=== PATIENT | female | born 1945 | race Hispanic/Latino ===

== ENCOUNTER → 2019-03-13 | Outpatient (CLI) | payer MEDICARE ==
[~2019-03-13] MED LIST: HYDROXYCHLOROQ200 MG PO; IOPAMIDOL 370 MG/ML 200 ML INFUS..BTL INJ ONE; LEVOTHYROXINE75 MCG PO; METOPROLOL SUCC25 MG PO; PIOGLITAZONE HC45 MG PO; REGADENOSON 0.4 MG/5 ML SYR IV ONE; SODIUM CHLORIDE 0.9% 100 ML 100 ML ONE; SODIUM CHLORIDE 0.9% 250ML 500 ML ONE; SODIUM CHLORIDE 0.9% 50ML 0 ML ONE; Z.0.AMLODIPINE BESYL PO; Z.0.BENTYL20 MG PO; Z.0.CRESTOR20 MG PO; Z.0.GLIMEPIRIDE4 MG PO; Z.0.LISINOPRIL40 MG PO; Z.0.METFORMIN HCL100 PO; Z.0.PLAVIX75 MG PO; Z.1.HYDROCHLOROTH12. PO
[2019-03-13 08:17] LABS: CREATININE, SERUM 1.3 mg/dL (0.57-1.11)
--- NOTE | 2019-03-13 14:11 | Diagnostic Imaging Report ---
History: Carotid stenosis Comparison studies:None Technique: Axial images were obtained from the thoracic inlet. Coronal and sagittal images reconstructed from the axial data. Additional multiplanar MIP and volume rendered 3-D images were provided. Automated stenoses calculations were also performed on a stand alone workstation by the radiologist (these images are available on the PACS. Intravenous contrast: 100 cc of Omnipaque 300. If present, stenosis is calculated utilizing the NASCET method which calculates the degree of stenosis with reference to the normal lumen of the carotid artery distal to the stenosis. Findings: Aortic arch and great vessels: Moderate scattered calcified plaque throughout the arch. Mild stenosis due to calcified plaque at the origins of the subclavian arteries. Calcified plaque at the origin of the right brachiocephalic and left common carotid arteries do not result in significant stenosis. Right carotid artery: Calcified plaque at the origin does not result in significant stenosis. Calcified and soft plaque in any distal right common carotid artery just proximal to the bifurcation results in less than 20% stenosis. Right carotid bulb: Moderate calcified and mild soft plaque at the right carotid bulb with approximately 15% stenosis Right internal carotid artery: Patent, no stenosis. Left common carotid artery: Facet arthrosis on the left at C3-C4 and on the right at C4-C5. Calcified plaque at the origin does not result significant stenosis. Soft plaque versus mild intimal thickening in the distal left common carotid artery results in less than 20% stenosis. Left carotid bulb: Changes of prior endarterectomy. No (0%) stenosis. Internal carotid arteries: Patent, no abnormalities. Vertebral arteries: Patent, no abnormalities. Included mus[place]og[place] of [place]: Patent internal carotid arteries with dense calcified plaque in the bilateral cavernous and paraophthalmic ICA segments which result in only mild stenosis. Patent, no proximal branch occlusion or stenosis in the bilateral middle cerebral arteries and anterior cerebral arteries. Patent intradural vertebral arteries with mild calcified plaque in the proximal V4 segments which result in only mild stenosis. Patent, no abnormalities in the basilar artery. No proximal branch occlusion in the included posterior cerebral arteries.. Incidental findings: Sternotomy wires for previous cardiothoracic surgery. Hyperdensity along the superolateral margin of the left globe possibly glaucoma shunt reservoir which can be correlated with ophthalmologic history. IMPRESSION: 1. Atherosclerotic plaques as described. 2. Mild stenosis (< 20%) in the distal common carotid arteries. 3. Approximately 15% stenosis at the right carotid bulb. 4. No (0%) stenosis at the left carotid bulb status post left carotid endarterectomy. 5. Mild stenosis in the carotid siphons and intradural vertebral arteries. Signed by: Dr. Samuel Jain M.D. on 03/13/2019 2:08 PM
== END ==
LOC: CT 07:12
PROVIDERS: ATTEND Internal Medicine
DX: I65.22 Occlusion and stenosis of left carotid artery (principal); R07.9 Chest pain, unspecified
CPT/HCPCS: 36415; 70498; 82565; 84520; 96360; J7050; Q9967

== ENCOUNTER → 2019-03-27 | Outpatient (CLI) | payer MEDICARE ==
[~2019-03-27] MED LIST changes: +COREG12.5 MG PO; +FUROSEMIDE40 MG PO; -IOPAMIDOL 370 MG/ML 200 ML INFUS..BTL INJ ONE; +KEFLEX500 MG PO; -SODIUM CHLORIDE 0.9% 100 ML 100 ML ONE; -SODIUM CHLORIDE 0.9% 250ML 500 ML ONE; -SODIUM CHLORIDE 0.9% 50ML 0 ML ONE
--- NOTE | 2019-04-07 12:51 | Myoview Stress Test ---
DATE OF STUDY: 03/27/2019 09:27:00 Stress Test - Treadmill ONLY PROCEDURE TITLE: Rest/stress single isotope SPECT imaging with pharmacologic stress and gated SPECT imaging. DESCRIPTION OF PROCEDURE: Pharmacologic stress testing was performed with regadenoson per protocol. The heart rate was 66 beats per minute at rest and increased to 86 beats per minute during the regadenoson infusion. The rest blood pressure was 149/57 and decreased to 136/56 mmHg, which is a normal response. The resting electrocardiogram demonstrated normal sinus rhythm. There were no ST-segment changes suggestive of myocardial ischemia. Myocardial perfusion imaging was performed at rest following the injection of 11 mCi of tetrofosmin. At peak pharmacologic effect, the patient was injected 33 mCi of tetrofosmin. Gated post-stress tomographic imaging was performed. FINDINGS: The overall quality of the study is fair. Left ventricular cavity is noted to be normal size on the rest and stress studies. SPECT images demonstrate homogeneous tracer distribution throughout the myocardium. Gated SPECT imaging reveals normal myocardial thickening and wall motion. Left ventricular ejection fraction is calculated to be 70%. IMPRESSION: Myocardial perfusion imaging is normal. Overall left ventricular systolic function was normal without regional wall motion abnormalities. Isela Oneill MD ABS/MODL /[id number]
== END ==
LOC: NM 09:08
PROVIDERS: ATTEND Internal Medicine
DX: I65.22 Occlusion and stenosis of left carotid artery (principal); R07.9 Chest pain, unspecified
CPT/HCPCS: 78452; 93017; A9502; J2785

== ENCOUNTER 2019-04-09 12:29 | Observation (INO) | payer MEDICARE ==
[~2019-04-09] VITALS: Ht 152.4 cm; Wt 87.5 kg
[~2019-04-09 12:29] MED LIST changes: -COREG12.5 MG PO; -FUROSEMIDE40 MG PO; -KEFLEX500 MG PO; -REGADENOSON 0.4 MG/5 ML SYR IV ONE
--- OUTSIDE RECORDS SUMMARY | 2019-04-09 12:34 | XMS REPORT | Clinical Summary ---
Author Author [facility] Organization [facility] Address Unknown Phone Unavailable Care Team Providers Care Licensing Director Name Role Phone Samuel Allen MD PCP Allergies Comments Active Allergy Reactions Severity Noted Date Aspirin GI 10/09/2016 Intolerance Codeine GI 10/09/2016 Intolerance Morphine GI 10/09/2016 Intolerance Medications End Date Status Medication Sig Dispensed Refills Start Date Active dicyclomine (BENTYL) 20 Take 20 mg by 0 mg tablet mouth 4 (four) times a day. Active metFORMIN (GLUCOPHAGE) Take 1,000 mg 0 1,000 mg tablet by mouth daily. Active UNABLE TO FIND hyoroxychloro 0 quine Active pioglitazone (ACTOS) 15 Take 30 mg by 0 MG tablet mouth daily. Active levothyroxine (SYNTHROID, Take 75 mcg 0 LEVOXYL) 75 mcg tablet by mouth every morning. Active hydroCHLOROthiazide Take 12.5 mg 0 (MICROZIDE) 12.5 mg by mouth capsule daily. Active amLODIPine (NORVASC) 10 Take 10 mg by 0 mg tablet mouth daily. Active albuterol (PROAIR HFA) 90 Inhale 2 0 mcg/actuation inhaler puffs every 6 (six) hours as needed for wheezing. Active Problems Problem Noted Date Postoperative anemia due to acute blood loss 10/18/2016 Thrombocytopenia 10/18/2016 Acute renal failure 10/17/2016 Delirium 10/17/2016 Aortic valve stenosis 10/15/2016 S/P AVR 10/15/2016 Stenosis of left carotid artery 10/15/2016 Type 2 diabetes mellitus without complication 10/15/2016 Post-op pain 10/15/2016 S/P carotid endarterectomy 10/15/2016 Social History Date Tobacco Use Types Packs/Day Years Used Current Some Day Smoker Comments: intermittent Alcohol Use Drinks/Week oz/Week Comments No Sex Assigned at Date Recorded Not on file Industry Job Start Date Occupation Not on file Not on file Not on file Travel End Travel History Travel Start No recent travel history available. Last Filed Vital Signs Not on file Plan of Treatment Health Maintenance Due Date Last Done Comments DIABETIC RETINAL EYE EXAM 1944 DIABETIC FOOT EXAM 1954 URINE MICROALBUMIN 1954 BREAST CANCER SCREENING 1994 COLONOSCOPY SCREENING 1994 SHINGLES VACCINES (#1) 1994 65+ PNEUMOCOCCAL VACCINE 2009 (1 of 2 - PCV13) INFLUENZA VACCINE 04/30/2019 Implants Device Identifier Shelf Expiration Date Model / Serial / Lot Implanted Type Area Manufactur er 6500F / / Lead Pace Luciano Mycrdl Unipol Tmpry Cardiovasc N/A: N/A [employer] Streamline - [id number] [facility] - Implanted: 10/15/2016 (Quantity not Implants CARDIAC on file) SRGRY 6500F / / Lead Pace Luciano Mycrdl Unipol Tmpry Cardiovasc N/A: N/A [employer] Streamline - [id number] [facility] - Implanted: 10/15/2016 (Quantity not Implants CARDIAC on file) SRGRY 04/24/2018 TFGT 19A / [id number] / [id number] Valve Aortic Hemo Peric Tiss Cardiovasc N/A: N/A ST LO W/[place] Tech Cuff 19mm Trifecta - ulpr STRUCTURAL [id number] Implants HEART Implanted: 10/15/2016 (Quantity not on file) 6500F / / Lead Pace Luciano Mycrdl Unipol Tmpry Cardiovasc N/A: N/A [employer] Streamline - [id number] [facility] - Implanted: 10/15/2016 (Quantity not Implants CARDIAC on file) SRGRY S 1100 [id number] / / Chamber Sgl Edy Dry Suct 1wy Vlv Surgical N/A: N/A TELEFLEX Adlt Pedi - [id number] Implants; MEDICAL Implanted: 10/15/2016 (Quantity not Expanders; on file) Extenders; Surgical Wires 02/05/2021 [id number] / / [id number] Patch Vasclr Perph 0.8x8cm Vascular N/A: N/A JOSE Vascu-Guard - [id number] Graft [employer] Implanted: 10/15/2016 (Quantity not on file) Results Not on fileafter 04/08/2018 Insurance Type Payer Benefit Subscriber ID Effective Phone Address Plan / Dates Group HMO CIGNA HEALTHSPRING CIGNA xxxxxxxxxxx 2016-P HEALTHSPRI resent NG HMO MCR ADV HMO AETNA AETNA xxxxxxxxxx 2004-P HMO,POS,EP resent O, MC/EC Advance Directives Patient has advance care planning documents on file. For more information, [place] contact: Feliciano Bonilla [address] [place] [address]
--- OUTSIDE RECORDS SUMMARY | 2019-04-09 12:35 | XMS REPORT | Summary of Care ---
Author Author [facility] [place] Organization [facility] [place] Address Unknown Phone Unavailable Encounter HQ Encntr_alikatie(FIN) [id number] Date(s): 12/22/18 - 12/22/18 [facility] [place] [address] [place] [phone] Discharge Disposition: Home or Self Care Attending Physician: Lio De La O MD Referring Physician: Lio De La O MD Vital Signs No data available for this section Problem List No data available for this section Allergies, Adverse Reactions, Alerts No data available for this section Medications No data available for this section Results No data available for this section Immunizations No data available for this section Procedures No data available for this section Social History No data available for this section Assessment and Plan No data available for this section
--- OUTSIDE RECORDS SUMMARY | 2019-04-09 12:35 | XMS REPORT | Continuity of Care Document ---
Author Author [facility] Organization [facility] Address Unknown Phone Unavailable Care Team Providers Care Unix Analyst Name Role Phone [employer] Unavailable Unavailable Problems Problem Status Onset Date Classification Date Reported Comments Source Z11.1 - ENCOUNTER FOR SCREENING FOR RE Active 07/18/2016 [facility] [place] 719.4 - PAIN IN JOINT Active 02/18/2013 [facility] [place] Fibromyalgia Active Problem 04/08/2019 Lester De La O Rheumatoid arthritis without rheumatoid factor, multiple sites Active Problem 04/08/2019 Lester De La O Knee osteoarthritis Active Problem 04/08/2019 Lester De La O Other group home drug therapy Active Diagnosis 04/08/2019 Lester De La O Osteoporosis screening Active Diagnosis 06/25/2017 Lester De La O Hip pain, left Active Diagnosis 12/18/2018 Lester De La O Medications Medication Details Route Status Patient Instructions Ordering Provider Order Date Source Hydroxychloroquine Sulfate take one tablet by mouth twice daily with food or milk NA Active 200MG bid Monica 12/02/2018 Lester De La O Hydroxychloroquine Sulfate take one tablet by mouth twice daily with food or milk NA Active 200MG Monica 11/10/2018 Lester De La O Folic Acid 1 tablet Orally Active 1 MG Orally Once a day Monica 04/23/2018 Lester De La O Methotrexate 6 tabs altogether Orally Active 2.5mg Orally Once a week 04/23/2018 Lester De La O PredniSONE 1 tab Orally Active 5 MG Orally Once a day Monica 04/23/2018 Lester De La O PredniSONE 1 tab Orally Active 5 MG Orally Once a day Monica 04/23/2018 Lester De La O Methotrexate 6 tabs altogether Orally Active 2.5mg Orally Once a week 04/23/2018 Lester De La O Leflunomide 1 tablet Orally Active 20 MG Orally Once a day Fakoya 06/07/2017 Lester De La O Synvisc One in clinic Intra-articular Active 48 MG/6ML Intra-articular Fakoya 06/07/2017 Lester De La O Medrol 1 tablet with food or milk in the morning Orally Active 4 MG Orally once a day 06/07/2017 Lesterjanell De La O Hydroxychloroquine Sulfate 1 tablet with food or milk Orally Active 200 MG Orally twice a day 05/17/2017 Lester Jairon Metformin HCl 1 tablet with meals Orally Active 1000 MG Orally Twice a day [facility] Lester De La O Metoprolol-HCTZ ER 1 tablet Orally Active 25-12.5 MG Orally Once a day [facility] Lester De La O Clopidogrel Bisulfate 1 tablet Orally Active 75 MG Orally Once a day Lester De La O Dicyclomine HCl 1 tablet Orally Active 20 MG Orally Four times a day [facility] Lester De La O Timolol 1 drop into affected eye Ophthalmic Active 0.5 % Ophthalmic Once a day Lester De La O Amlodipine Besylate 1 tablet Orally Active 10 MG Orally Once a day Lester De La O Gabapentin 1 capsule Orally Active 300 MG Orally Three times a day [facility] Lester De La O FreeStyle Lite as directed NA Active [facility] Lester De La O Levothyroxine Sodium 1 tablet Orally Active 75 MCG Orally Once a day Lester De La O Lisinopril 1 tablet Orally Active 40 MG Orally Once a day [facility] Lester De La O Hydroxychloroquine Sulfate TAKE ONE TABLET BY MOUTH TWICE DAILY WITH FOOD OR MILK NA Active 200MG Lester De La O Pioglitazone HCl 1 tablet Orally Active 30 MG Orally Once a day Lester De La O Hydrochlorothiazide 1 capsule Orally Active 12.5 MG Orally Once a day Lester De La O Rifampin 1 capsule Orally Active 600 MG Orally Once a day Lester De La O Medrol 1 tablet with food or milk in the morning Orally Active 4 MG Orally once a day Lester De La O Metformin HCl 1 tablet with meals Orally Active 1000 MG Orally Twice a day Lester De La O Gabapentin 1 capsule Orally Active 300 MG Orally Three times a day Lester De La O Clopidogrel Bisulfate 1 tablet Orally Active 75 MG Orally Once a day Lester De La O Timolol 1 drop into affected eye Ophthalmic Active 0.5 % Ophthalmic Once a day Lester De La O Dicyclomine HCl 1 tablet Orally Active 20 MG Orally Four times a day Lester De La O Lisinopril 1 tablet Orally Active 40 MG Orally Once a day Monica Lester De La O FreeStyle Lite as directed NA Active Monica Lester De La O Levothyroxine Sodium 1 tablet Orally Active 75 MCG Orally Once a day Monica Lester De La O Hydrochlorothiazide 1 capsule Orally Active 12.5 MG Orally Once a day Monica Lester De La O Metoprolol-HCTZ ER 1 tablet Orally Active 25-12.5 MG Orally Once a day Monica Lester De La O Tylenol Arthritis Pain 2 tablets as needed Orally Active 650 MG Orally as needed Monica Lester De La O Allergies, Adverse Reactions, Alerts Substance Category Reaction Severity Reaction type Status Date Reported Comments Source Morphine Sulfate Adverse Reaction Info Not Available Adverse Reaction Active 03/10/2019 Lester De La O Codeine Sulfate Adverse Reaction Info Not Available Adverse Reaction Active 03/10/2019 Lester De La O Aspirin Adverse Reaction Info Not Available Adverse Reaction Active 03/10/2019 Lester De La O Immunizations No Data Provided for This Section Results No Data Provided for This Section Pathology Reports No Data Provided for This Section Diagnostic Reports Report Value Date Source Hip 2/3 views uni w pelvis DX EXAM: Hip 2/3 views uni w pelvis DX HISTORY: - M25.552 Pain in left hip COMPARISON: None AP pelvis and AP and lateral view of the left hip. FINDINGS: No fracture is seen. Alignment is normal. No evidence of osteophyte formation. No focal osseous lesion. Vascular clips in the left groin. IMPRESSION: No acute abnormality. 12/22/2018 NEGRO Garay Chest 2 views DX EXAM: Chest 2 views DX HISTORY: - J44.9 Chronic obstructive pulmonary disease, unspecified COMPARISON: 07/18/2016 Cardiomegaly and median sternotomy. Valvular repair. Clear lungs. No effusion or pneumothorax. No acute osseous abnormality. Kyphoplasty at the thoracolumbar junction is again noted. IMPRESSION: No acute abnormality. Stable cardiomegaly. 01/21/2018 NEGRO Garay Chest 2 views DX EXAM: 2 view(s) of the chest. CLINICAL: Z11.1 Encounter for screening for respiratory tuberculosis. Additional: ; . COMPARISON: Chest x-ray: 04/10/2016. FINDINGS: Support apparatus: None. Cardiac silhouette: Unremarkable. Kirsten: Unremarkable. Lobar consolidation: Negative. Pleural effusion: Negative. Pneumothorax: Negative. Other: Negative. Bones: Lower thoracic spine vertebroplasty changes. Other: None. IMPRESSION: 1. No acute cardiopulmonary process. 07/18/2016 NEGRO Warrena Chest 2 views DX Exam: Two-view chest x-ray Reason for Exam: R01.1 Cardiac murmur, unspecified Comparison Exam: 02/16/2014 Discussion: Cardiomediastinal silhouette is within normal limits. Both hemidiaphragms well visualized. No pulmonary edema or pleural effusions. No focal lung consolidations. Trachea is midline. Calcifications are seen of the thoracic aortic arch. No acute bony abnormalities. Patient is status post vertebroplasty within the lower thoracic spine. Impression: 1. No acute cardiopulmonary abnormalities. 04/10/2016 NEGRO Garay Knee 3 Views Bilateral DX EXAMINATION: Bilateral knees 3 views each. HISTORY: Bilateral knee pain; polyarthritis FINDINGS: Frontal view of both knees and lateral and oblique views of each knee are performed without comparison. There are no fractures. There is mild medial compartment joint space narrowing of the left knee. The remaining joint spaces are normal. There are no knee effusions. Multiple surgical clips are noted along the left leg. IMPRESSION: 1. Mild medial compartment joint space narrowing of the left knee. 2. Normal joint spaces of the right knee. 05/09/2015 NEGRO Garay Spine cervical series DX EXAMINATION: Cervical spine - AP, lateral, obliques, and odontoid. HISTORY: Cervical pain; polyarthropathy FINDINGS: Frontal, lateral, bilateral oblique, and odontoid views of the cervical spine are performed without comparison. There is no listhesis of the cervical spine. There is no prevertebral soft tissue swelling. Alignment of the lateral masses of C1 on C2 is obscured. There is no osseous central canal stenosis. The intervertebral disc spaces are normal. There is no substantial uncovertebral osteoarthritis. The bilateral osseous neuroforamina are widely patent. Right carotid artery atherosclerotic calcifications are noted. IMPRESSION: 1. Normal alignment and intervertebral disc spaces of the cervical spine. 2. Widely patent bilateral osseous neuroforamina. 3. Right carotid artery atherosclerotic calcifications. 05/09/2015 [facility] [place] Should[place] 2+ Views Bilateral DX EXAMINATION: Bilateral shoulders 2+ views HISTORY: Bilateral shoulder pain; polyarthropathy FINDINGS: 3 views of each shoulder are performed and compared to left shoulder radiographs dated 02/18/2013. There are no acute fractures or dislocations. The glenohumeral joint spaces are normal. There is mild bilateral, left greater than right, acromioclavicular osteoarthritis. IMPRESSION: 1. Mild bilateral, left greater than right, acromioclavicular osteoarthritis. 05/09/2015 NEGRO Garay Hand 3 views Bilateral DX EXAMINATION: Bilateral hands 3 views each. HISTORY: Polyarthralgia. FINDINGS: Three views of each hand are performed without comparison. There is moderate osteoarthritis involving the distal interphalangeal joints of the bilateral index and long fingers, most severe at the right index finger. There is also mild osteoarthritis at the bilateral thumb interphalangeal joints. The remaining joint spaces are normal. There are no acute fractures or dislocations. There are no radiopaque foreign bodies. There are no osseous erosions identified. IMPRESSION: 1. Moderate osteoarthritis of the bilateral index and long finger DIP joints, most severe at the right index finger DIP joint. 2. Mild bilateral thumb interphalangeal joint osteoarthritis. 05/09/2015 NEGRO Garay Chest 2 views Chest x-ray 2 views INDICATION: Cough COMPARISON: None FINDINGS: Heart size and central vasculature are within normal limits. There is no effusion or focal pneumonia. No pneumothorax. No acute osseous pathology. IMPRESSION: No acute cardiopulmonary process. 02/16/2014 NEGRO Garay Shoulder series TYPE OF EXAM: Left shoulder series COMPARISON: None. IMPRESSION: No fracture or dislocation is demonstrated. No lytic or blastic lesion. Punctate calcification noted adjacent to the superolateral aspect of the humeral head suggesting sequela from rotator cuff calcific tendinitis. 02/18/2013 NEGRO Garay Consultation Notes No Data Provided for This Section Discharge Summaries No Data Provided for This Section History and Physicals No Data Provided for This Section Vital Signs Vital Sign Value Date Comments Source Weight 196.8 03/10/2019 Lester De La O Height 60 03/10/2019 Lester De La O Temperature Oral (F) 97.6 F 03/10/2019 Lester De La O Heart Rate 68 03/10/2019 Lester De La O Diastolic (mm Hg) 70 03/10/2019 Lester De La O Systolic (mm Hg) 122 03/10/2019 Lester De La O Weight 189.9 12/15/2018 Lester De La O Height 60 12/15/2018 Lester De La O Temperature Oral (F) 97.4 F 12/15/2018 Lester De La O Heart Rate 64 12/15/2018 Lester De La O Diastolic (mm Hg) 78 12/15/2018 Lester De La O Systolic (mm Hg) 130 12/15/2018 Lester De La O Weight 187.4 09/16/2018 Lester De La O Height 60 09/16/2018 Lester De La O Temperature Oral (F) 96.8 F 09/16/2018 Lester De La O Heart Rate 76 09/16/2018 Lester De La O Diastolic (mm Hg) 70 09/16/2018 Elster De La O Systolic (mm Hg) 126 09/16/2018 Lester De La O Weight 189.7 09/03/2018 Lester De La O Height 60 09/03/2018 Lester De La O Temperature Oral (F) 97.0 F 09/03/2018 Lester De La O Heart Rate 60 09/03/2018 Lester De La O Diastolic (mm Hg) 60 09/03/2018 Lester De La O Systolic (mm Hg) 112 09/03/2018 Lester De La O Weight 195 05/14/2018 Lester De La O Height 60 05/14/2018 Lester De La O Temperature Oral (F) 97.3 F 05/14/2018 Lester De La O Heart Rate 72 05/14/2018 Lester De La O Diastolic (mm Hg) 70 05/14/2018 Lester De La O Systolic (mm Hg) 134 05/14/2018 Lester De La O Weight 193.6 05/08/2018 Lester De La O Height 59 05/08/2018 Lester De La O Temperature Oral (F) 98.2 F 05/08/2018 Lester De La O Heart Rate 70 05/08/2018 Lester De La O Diastolic (mm Hg) 72 05/08/2018 Lester De La O Systolic (mm Hg) 122 05/08/2018 Lester De La O Weight 194 04/23/2018 Lester De La O Height 60 04/23/2018 Lester De La O Temperature Oral (F) 97.0 F 04/23/2018 Lester De La O Heart Rate 60 04/23/2018 Lester De La O Diastolic (mm Hg) 70 04/23/2018 Lester De La O Systolic (mm Hg) 120 04/23/2018 Lester De La O Weight 191 01/15/2018 Lester De La O Height 60 01/15/2018 Lester De La O Temperature Oral (F) 97.0 F 01/15/2018 Lester De La O Heart Rate 64 01/15/2018 Lester De La O Diastolic (mm Hg) 70 01/15/2018 Lester De La O Systolic (mm Hg) 138 01/15/2018 Lester De La O Weight 192 12/25/2017 Lester De La O Height 60 12/25/2017 Lester De La O Temperature Oral (F) 97.8 F 12/25/2017 Lester De La O Heart Rate 70 12/25/2017 Lester De La O Diastolic (mm Hg) 70 12/25/2017 Lester De La O Systolic (mm Hg) 126 12/25/2017 Lester De La O Systolic (mm Hg) 130 06/28/2017 Lester De La O Weight 193 06/28/2017 Lester De La O Height 60 06/28/2017 Lester De La O Temperature Oral (F) 97.6 F 06/28/2017 Lester De La O Heart Rate 68 06/28/2017 Lester De La O Diastolic (mm Hg) 68 06/28/2017 Lester De La O Weight 189 06/21/2017 Lester De La O Height 59 06/21/2017 Lester De La O Temperature Oral (F) 99.0 F 06/21/2017 Lester De La O Heart Rate 80 06/21/2017 Lester De La O Diastolic (mm Hg) 50 06/21/2017 Lester De La O Systolic (mm Hg) 130 06/21/2017 Lester De La O Weight 197.4 06/07/2017 Lester De La O Height 60 06/07/2017 Lester De La O Temperature Oral (F) 96.5 F 06/07/2017 Lester De La O Heart Rate 68 06/07/2017 Lester De La O Diastolic (mm Hg) 64 06/07/2017 Lester De La O Systolic (mm Hg) 122 06/07/2017 Lester De La O Weight 180 03/07/2017 Lester De La O Height 60 03/07/2017 Lester De La O Temperature Oral (F) 97.2 F 03/07/2017 Lester De La O Heart Rate 64 03/07/2017 Lester De La O Diastolic (mm Hg) 60 03/07/2017 Lester De La O Systolic (mm Hg) 120 03/07/2017 Lester De La O Weight 183 02/26/2017 Lester De La O Height 60 02/26/2017 Lester De La O Temperature Oral (F) 96.8 F 02/26/2017 Lester De La O Heart Rate 76 02/26/2017 Lester De La O Diastolic (mm Hg) 62 02/26/2017 Lester Fosterer Systolic (mm Hg) 140 02/26/2017 Lester De La O Weight 187 02/20/2017 Lester De La O Height 60 02/20/2017 Lester De La O Temperature Oral (F) 97.4 F 02/20/2017 Lester De La O Heart Rate 68 02/20/2017 Lester De La O Diastolic (mm Hg) 62 02/20/2017 Lester De La O Systolic (mm Hg) 122 02/20/2017 Lester De La O Encounters Location Location Details Encounter Type Encounter Number Reason For Visit Attending Provider ADM Date DC Date Status Source OD [id number] 719.4 - PAIN IN JOINT SINCERE ALLEN 02/18/2013 Active [facility] [place] [facility] [place] [facility] [id number] Sincere Allen 02/16/2014 02/17/2014 [facility] [place] [facility] [place] [facility] [id number] Juan Anderson 05/09/2015 05/10/2015 [facility] [place] [facility] [place] [facility] [id number] Sincere Allen 04/10/2016 04/11/2016 [facility] [place] [facility] [place] [facility] [id number] [facility] 07/18/2016 07/19/2016 [facility] [place] [facility] [place] [facility] [id number] Sincere Allen 01/21/2018 01/22/2018 [facility] [place] [facility] [place] [facility] [id number] [facility] 12/22/2018 12/23/2018 [facility] [place] Procedures No Data Provided for This Section Assessment and Plan No Data Provided for This Section Plan of Care No Data Provided for This Section Social History Social History Date Source No data available for this section 12/23/2018 [facility] [place] Family History No Data Provided for This Section Advance Directives No Data Provided for This Section Functional Status No Data Provided for This Section
--- OUTSIDE RECORDS SUMMARY | 2019-04-09 12:35 | XMS REPORT | Summary of Care ---
Author Author [facility] [place] Organization [facility] [place] Address Unknown Phone Unavailable Encounter HQ Encntr_alias(FIN) [id number] Date(s): 01/21/18 - 01/21/18 [facility] [place] [address] [place] [phone] Discharge Disposition: Home or Self Care Attending Physician: Samuel Allen MD Vital Signs No data available for [...]
--- OUTSIDE RECORDS SUMMARY | 2019-04-09 12:36 | XMS REPORT ---
Author Author Juan Anderson [facility] [employer] Address Unknown Phone Unavailable Care Team Providers Care Tobacco Sample Puller Name Role Phone Juan Anderson Unavailable Allergies, Adverse Reactions, Alerts Substance Reaction Event Type Morphine Sulfate Info Not Available Drug Allergy Codeine Sulfate Info Not Available Drug Allergy Aspirin Info Not Available Drug Allergy Problems Problem Type Condition Code Onset Dates Condition Status Problem Fibromyalgia M79.7 Active Problem Rheumatoid arthritis without rheumatoid factor, multiple sites M06.09 Active Problem Knee osteoarthritis M17.9 Active Assessment Other snf (current) drug therapy Z79.899 Active Assessment Knee osteoarthritis M17.9 Active Problem Other exterminator helper (current) drug therapy Z79.899 Active Assessment Rheumatoid arthritis without rheumatoid factor, multiple sites M06.09 Active Medications Medication Code System Code Instructions Start Date End Date Status Dosage Clopidogrel Bisulfate [facility] [address]-57 75 MG Orally Once a day Active 1 tablet Hydroxychloroquine Sulfate [facility] 23315192249 200MG Active TAKE ONE TABLET BY MOUTH TWICE DAILY WITH FOOD OR MILK Dicyclomine HCl [facility] [address]-69 20 MG Orally Four times a day Active 1 tablet Amlodipine Besylate [facility] [address]-85 10 MG Orally Once a day Active 1 tablet FreeStyle Lite [facility] 28[address]-92960 Active as directed Gabapentin [facility] [address]-80 300 MG Orally Three times a day Active 1 capsule Rifampin [facility] [address]-62 600 MG Orally Once a day Active 1 capsule Metoprolol-HCTZ ER [facility] [address]-35 25-12.5 MG Orally Once a day Active 1 tablet Lisinopril [facility] [address]-00 40 MG Orally Once a day Active 1 tablet Levothyroxine Sodium [facility] [address]-07 75 MCG Orally Once a day Active 1 tablet Metformin HCl [facility] [address]-38 1000 MG Orally Twice a day Active 1 tablet with meals Pioglitazone HCl [facility] [address]-08 30 MG Orally Once a day Active 1 tablet Timolol [facility] [address]-08 0.5 % Ophthalmic Once a day Active 1 drop into affected eye Hydrochlorothiazide [facility] [address]-44 12.5 MG Orally Once a day Active 1 capsule Vital Signs Date/Time: February 20, 2017 BMI 36.52 Index Weight 187 lbs Height 60 in Temperature 97.4 F Cardiac Monitoring Heart Rate 68 /min Blood Pressure Diastolic 62 mm Hg Blood Pressure Systolic 122 mm Hg Results No Known Results Summary Purpose [employer] Submission
--- OUTSIDE RECORDS SUMMARY | 2019-04-09 12:36 | XMS REPORT | Summary of Care ---
Author Organization Unknown Address Unknown Phone Unavailable Encounter HQ Encntr_alikatie([facility]) [id number] Date(s): 02/16/14 - 02/16/14 [facility] Outpatient Imaging - [address] [address] [place] Discharge Disposition: Home Physician Attending: Samuel Allen MD Reason for Visit 786.2 - COUGH Problem List No data available for this section Allergies, Adverse Reactions, Alerts No data available for this section Medications No data available for this section Medications Administered During Your Visit No data available for this section Immunizations No data available for this section
--- OUTSIDE RECORDS SUMMARY | 2019-04-09 12:36 | XMS REPORT | Summary of Care ---
Author Author [facility] [place] Organization [facility] [place] Address Unknown Phone Unavailable Encounter HQ Encntr_alikatie(FIN) [id number] Date(s): 04/10/16 - 04/10/16 [facility] [place] [address] [place] [phone] Discharge Disposition: Home Attending Physician: Samuel Allen MD Vital Signs [...]
--- OUTSIDE RECORDS SUMMARY | 2019-04-09 12:36 | XMS REPORT | Summary of Care ---
Author Author [facility] - [place] Organization [facility] [place] Address Unknown Phone Unavailable Encounter HQ Encntr_alikatie(FIN) [id number] Date(s): 05/09/15 - 05/09/15 [facility] [place] [address] [place] [id number] [place] [address] [phone] Discharge Disposition: Home Attending Physician: Juan Anderson MD Vital Signs No data available for [...]
--- OUTSIDE RECORDS SUMMARY | 2019-04-09 12:36 | XMS REPORT | Summary of Care ---
Author Author [facility] Outpatient [facility] - [place] Organization [facility] [place] Address Unknown Phone Unavailable Encounter HQ Encntr_lex(FIN) [id number] Date(s): 07/18/16 - 07/18/16 [facility] Outpatient Imaging - [place] [address] [place] [address] [phone] Discharge Disposition: Home or Self Care Attending Physician: Lio De La O MD Vital [...]
--- OUTSIDE RECORDS SUMMARY | 2019-04-09 12:36 | XMS REPORT ---
Author Author Juan Anderson Organization [employer] Address Unknown Phone Unavailable Care Team Providers Care Application Support Administrator Name Role Phone Juan Anderson CP Unavailable Allergies No Known Allergies Problems Problem Type Condition Code Onset Dates Condition Status Problem Fibromyalgia M79.7 Active Problem Rheumatoid arthritis without rheumatoid factor, multiple sites M06.09 Active Problem Knee osteoarthritis M17.9 Active Problem Other rn long term care (current) drug therapy Z79.899 Active Medications Medication Code System Code Instructions Start Date End Date Status Dosage Hydroxychloroquine Sulfate [facility] [address]-56 200 MG Orally twice a day May 17, 2017 Active 1 tablet with food or milk Results No Known Results Summary Purpose [employer] Submission
--- OUTSIDE RECORDS SUMMARY | 2019-04-09 12:36 | XMS REPORT ---
Author Author Juan Anderson [facility] eClinicalWorks Address Unknown Phone Unavailable Care Team Providers Care Teaching Associate Name Role Phone Juan Anderson Unavailable Allergies, [...] Problem Knee osteoarthritis M17.9 Active Assessment Other skilled nursing (current) drug therapy Z79.899 Active Assessment Knee osteoarthritis M17.9 Active Problem Other machine long goods helper (current) drug therapy Z79.899 Active Assessment Rheumatoid arthritis without rheumatoid factor, multiple sites M06.09 Active Medications Medication Code System Code Instructions Start Date End Date Status Dosage Timolol [facility] [address]-17 0.5 % Ophthalmic Once a day Active 1 drop into affected eye FreeStyle Lite [facility] 46222-46646 Active as directed Amlodipine Besylate [facility] [address]-99 10 MG Orally Once a day Active 1 tablet Metoprolol-HCTZ ER [facility] [address]-11 25-12.5 MG Orally Once a day Active 1 tablet Gabapentin [facility] [address]-28 300 MG Orally Three times a day Active 1 capsule Clopidogrel Bisulfate [facility] [address]-19 75 MG Orally Once a day Active 1 tablet Synvisc One [facility] [address]-67 48 MG/6ML Intra-articular Jun 07, 2017 Active in clinic Hydroxychloroquine Sulfate [facility] 41886812752 200MG Active TAKE ONE TABLET BY MOUTH TWICE DAILY WITH FOOD OR MILK Levothyroxine Sodium [facility] [address]-75 75 MCG Orally Once a day Active 1 tablet Hydrochlorothiazide [facility] [address]-07 12.5 MG Orally Once a day Active 1 capsule Medrol [facility] [address]-39 4 MG Orally once a day Jun 07, 2017 Oct 05, 2017 Active 1 tablet with food or milk in the morning Lisinopril [facility] [address]-32 40 MG Orally Once a day Active 1 tablet Metformin HCl [facility] [address]-87 1000 MG Orally Twice a day Active 1 tablet with meals Leflunomide [facility] [address]-56 20 MG Orally Once a day Jun 07, 2017 Oct 05, 2017 Active 1 tablet Pioglitazone HCl [facility] [address]-45 30 MG Orally Once a day Active 1 tablet Dicyclomine HCl [facility] [address]-01 20 MG Orally Four times a day Active 1 tablet Vital Signs Date/Time: Jun 07, 2017 BMI 38.55 Index Weight 197.4 lbs Height 60 in Temperature 96.5 F Cardiac Monitoring Heart Rate 68 /min Blood Pressure Diastolic 64 mm Hg Blood Pressure Systolic 122 mm Hg Results No Known Results Summary Purpose eClinicalWorks Submission
--- OUTSIDE RECORDS SUMMARY | 2019-04-09 12:36 | XMS REPORT ---
Author Author Juan Anderson [facility] eClinicalWorks Address Unknown Phone Unavailable Care Team Providers Care Classification Analyst Name Role Phone Juan Anderson Unavailable Allergies, Adverse Reactions, Alerts Substance Reaction Event Type Morphine Sulfate Info Not Available Drug Allergy Codeine Sulfate Info Not Available Drug Allergy Aspirin Info Not Available Drug Allergy Problems Problem Type Condition Code Onset Dates Condition Status Problem Fibromyalgia M79.7 Active Problem Rheumatoid arthritis without rheumatoid factor, multiple sites M06.09 Active Problem Knee osteoarthritis M17.9 Active Assessment Rheumatoid arthritis without rheumatoid factor, multiple sites M06.09 Active Problem Other esl instructional assistant (current) drug therapy Z79.899 Active Assessment Knee osteoarthritis M17.9 Active Medications Medication Code System Code Instructions Start Date End Date Status Dosage Metformin HCl [facility] [address]-35 1000 MG Orally Twice a day Active 1 tablet with meals Metoprolol-HCTZ ER [facility] [address]-09 25-12.5 MG Orally Once a day Active 1 tablet Clopidogrel Bisulfate [facility] [address]-49 75 MG Orally Once a day Active 1 tablet Dicyclomine HCl [facility] [address]-81 20 MG Orally Four times a day Active 1 tablet Timolol [facility] [address]-00 0.5 % Ophthalmic Once a day Active 1 drop into affected eye Amlodipine Besylate [facility] [address]-15 10 MG Orally Once a day Active 1 tablet Gabapentin [facility] [address]-36 300 MG Orally Three times a day Active 1 capsule FreeStyle Lite [facility] 55632-31241 Active as directed Levothyroxine Sodium [facility] [address]-45 75 MCG Orally Once a day Active 1 tablet Lisinopril [facility] [address]-11 40 MG Orally Once a day Active 1 tablet Hydroxychloroquine Sulfate [facility] 98968380395 200MG Active TAKE ONE TABLET BY MOUTH TWICE DAILY WITH FOOD OR MILK Pioglitazone HCl [facility]AM[facility] [address]-46 30 MG Orally Once a day Active 1 tablet Hydrochlorothiazide [facility] [address]-80 12.5 MG Orally Once a day Active 1 capsule Vital Signs Date/Time: February 26, 2017 BMI 35.74 Index Weight 183 lbs Height 60 in Temperature 96.8 F Cardiac Monitoring Heart Rate 76 /min Blood Pressure Diastolic 62 mm Hg Blood Pressure Systolic 140 mm Hg Results No Known Results Summary Purpose eClinicalWorks Submission
--- OUTSIDE RECORDS SUMMARY | 2019-04-09 12:36 | XMS REPORT ---
Author Author Juan Anderson [facility] eClinicalWorks Address Unknown Phone Unavailable Care Team Providers Care Rn Cardiac Rehab Name Role Phone Juan Anderson Unavailable Allergies, [...] factor, multiple sites M06.09 Active Problem Other assistant terminal manager (current) drug therapy Z79.899 Active Assessment Knee osteoarthritis M17.9 Active Medications Medication Code System Code Instructions Start Date End Date Status Dosage Pioglitazone HCl [facility] [address]-38 30 MG Orally Once a day Active 1 tablet Metformin HCl [facility] [address]-88 1000 MG Orally Twice a day Active 1 tablet with meals Hydrochlorothiazide [facility] [address]-94 12.5 MG Orally Once a day Active 1 capsule Amlodipine Besylate [facility] [address]-15 10 MG Orally Once a day Active 1 tablet Clopidogrel Bisulfate [facility] [address]-60 75 MG Orally Once a day Active 1 tablet Gabapentin [facility] [address]-55 300 MG Orally Three times a day Active 1 capsule Dicyclomine HCl [facility] [address]-10 20 MG Orally Four times a day Active 1 tablet Levothyroxine Sodium [facility] [address]-91 75 MCG Orally Once a day Active 1 tablet FreeStyle Lite [facility] 45888-63846 Active as directed Lisinopril [facility] [address]-28 40 MG Orally Once a day Active 1 tablet Hydroxychloroquine Sulfate [facility] 21261206087 200MG Active TAKE ONE TABLET BY MOUTH TWICE DAILY WITH FOOD OR MILK Timolol [facility] [address]-81 0.5 % Ophthalmic Once a day Active 1 drop into affected eye Metoprolol-HCTZ ER [facility] [address]-45 25-12.5 MG Orally Once a day Active 1 tablet Vital Signs Date/Time: March 07, 2017 BMI 35.15 Index Weight 180 lbs Height 60 in Temperature 97.2 F Cardiac Monitoring Heart Rate 64 /min Blood Pressure Diastolic 60 mm Hg Blood Pressure Systolic 120 mm Hg Results No Known Results Summary Purpose eClinicalWorks Submission
--- OUTSIDE RECORDS SUMMARY | 2019-04-09 12:37 | XMS REPORT ---
Author Author Lul Frazier Organization eClinicalWorks Address Unknown Phone Unavailable Care Team Providers Care Red Cap Name Role Phone Lul Frazier Unavailable Allergies, Adverse Reactions, Alerts Substance Reaction Event Type Morphine Sulfate Info Not Available Drug Allergy Codeine Sulfate Info Not Available Drug Allergy Aspirin Info Not Available Drug Allergy Problems Problem Type Condition Code Onset Dates Condition Status Assessment Osteoporosis screening Z13.820 Active Problem Fibromyalgia M79.7 Active Problem Rheumatoid arthritis without rheumatoid factor, multiple sites M06.09 Active Problem Knee osteoarthritis M17.9 Active Assessment Knee osteoarthritis M17.9 Active Assessment Other penitentiary (current) drug therapy Z79.899 Active Problem Other penitentiary (current) drug therapy Z79.899 Active Assessment Rheumatoid arthritis without rheumatoid factor, multiple sites M06.09 Active Medications Medication Code System Code Instructions Start Date End Date Status Dosage FreeStyle Lite [facility] [address] Active as directed Metoprolol-HCTZ ER [facility] [address]-15 25-12.5 MG Orally Once a day Active 1 tablet Leflunomide [facility] [address]-48 20 MG Orally Once a day Jun 07, 2017 Oct 05, 2017 Active 1 tablet Lisinopril [facility] [address]-67 40 MG Orally Once a day Active 1 tablet Clopidogrel Bisulfate [facility] [place] [address]-29 75 MG Orally Once a day Active 1 tablet Gabapentin [facility] [place] [address]-48 300 MG Orally Three times a day Active 1 capsule Dicyclomine HCl [facility] [place] [address]-97 20 MG Orally Four times a day Active 1 tablet Hydrochlorothiazide [facility] [address]-55 12.5 MG Orally Once a day Active 1 capsule Levothyroxine Sodium [facility] [address]-27 75 MCG Orally Once a day Active 1 tablet Synvisc One [facility] [address]-71 48 MG/6ML Intra-articular Jun 07, 2017 Active in clinic Metformin HCl [facility] [address]-10 1000 MG Orally Twice a day Active 1 tablet with meals Hydroxychloroquine Sulfate [facility] 84114831836 200MG once a day Active TAKE ONE TABLET BY MOUTH TWICE DAILY WITH FOOD OR MILK Timolol [facility] [place] [address]-94 0.5 % Ophthalmic Once a day Active 1 drop into affected eye Medrol [facility] [place] [address]-23 4 MG Orally once a day Active 1 tablet with food or milk in the morning Vital Signs Date/Time: Jun 21, 2017 BMI 38.17 Index Weight 189 lbs Height 59 in Temperature 99.0 F Cardiac Monitoring Heart Rate 80 /min Blood Pressure Diastolic 50 mm Hg Blood Pressure Systolic 130 mm Hg Results Name Result Date Reference Range Unit Abnormality Flag COMPREHENSIVE METABOLIC PANEL W/EGFR ----CALCIUM 9.2 [id number] 8.6-10.4 mg/dL N ----CARBON DIOXIDE 28 20170621 20-31 mmol/L N ----ALT 8 62351408 6-29 U/L N ----CREATININE 1.38 [id number] 0.60-0.93 mg/dL H ----AST 24 20170621 10-35 U/L N ----eGFR NON-AFR. EQUATORIAL GUINEAN 38 [id number] > OR=60 mL/min/1.73m2 L ----ALKALINE PHOSPHATASE 55 20170621 33-130 U/L N ----eGFR 44 [id number] > OR=60 mL/min/1.73m2 L ----BILIRUBIN, TOTAL 0.3 56006823 0.2-1.2 mg/dL N ----BUN/CREATININE RATIO 15 20170621 6-22 (calc) N ----ALBUMIN/GLOBULIN RATIO 1.4 [id number] 1.0-2.5 (calc) N ----SODIUM 144 80020758 135-146 mmol/L N ----GLOBULIN 2.7 58299090 1.9-3.7 g/dL (calc) N ----POTASSIUM 4.2 78403853 3.5-5.3 mmol/L N ----GLUCOSE 136 71700399 65-99 mg/dL H ----CHLORIDE 107 05351686 98-110 mmol/L N ----ALBUMIN 3.8 27494451 3.6-5.1 g/dL N ----UREA NITROGEN (BUN) 21 20170621 7-25 mg/dL N ----PROTEIN, TOTAL 6.5 20170621 6.1-8.1 g/dL N SED RATE BY MODIFIED WESTERGREN ----SED RATE BY MODIFIED WESTERGREN 28 [id number] < OR=30 mm/h N C-REACTIVE PROTEIN ----C-REACTIVE PROTEIN 2.1 [id number] <8.0 mg/L N CBC (INCLUDES DIFF/PLT) ----MCHC 34.4 20170621 32.0-36.0 g/dL N ----MCH 33.9 [id number] 27.0-33.0 pg H ----PLATELET COUNT 211 20170621 140-400 Thousand/uL N ----RDW 11.8 36106829 11.0-15.0 % N ----BASOPHILS 1.1 58675727 % N ----ABSOLUTE NEUTROPHILS 2456 25504000 8152-6206 cells/uL N ----ABSOLUTE LYMPHOCYTES 1435 05368047 850-3900 cells/uL N ----MPV 10.9 14721149 7.5-12.5 fL N ----ABSOLUTE BASOPHILS 51 02249026 0-200 cells/uL N ----HEMATOCRIT 30.2 46459468 35.0-45.0 % L ----NEUTROPHILS 53.4 10341932 % N ----MCV 98.4 96401593 80.0-100.0 fL N ----RED BLOOD CELL COUNT 3.07 76523527 3.80-5.10 Million/uL L ----ABSOLUTE MONOCYTES 469 14083742 200-950 cells/uL N ----ABSOLUTE EOSINOPHILS 189 98335846 15-500 cells/uL N ----HEMOGLOBIN 10.4 29965429 11.7-15.5 g/dL L ----EOSINOPHILS 4.1 30718880 % N ----WHITE BLOOD CELL COUNT 4.6 57778656 3.8-10.8 Thousand/uL N ----LYMPHOCYTES 31.2 20172334 % N ----MONOCYTES 10.2 58145087 % N Summary Purpose eClinicalWorks Submission
--- OUTSIDE RECORDS SUMMARY | 2019-04-09 12:37 | XMS REPORT ---
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
--- OUTSIDE RECORDS SUMMARY | 2019-04-09 12:37 | XMS REPORT ---
Author Author Lul Frazier Organization eClinicalWorks Address Unknown Phone Unavailable Care Team Providers Care Shade Cloth Finisher Name Role Phone Lul Frazier Unavailable Allergies, [...] factor, multiple sites M06.09 Active Problem Other correction (current) drug therapy Z79.899 Active Assessment Knee osteoarthritis M17.9 Active Medications Medication Code System Code Instructions Start Date End Date Status Dosage Clopidogrel Bisulfate [facility] [address]-27 75 MG Orally Once a day Active 1 tablet Gabapentin [facility] [address]-00 300 MG Orally Three times a day Active 1 capsule Hydroxychloroquine Sulfate [facility] 05165294374 200MG once a day Active TAKE ONE TABLET BY MOUTH TWICE DAILY WITH FOOD OR MILK Metoprolol-HCTZ ER [facility] [address]-99 25-12.5 MG Orally Once a day Active 1 tablet FreeStyle Lite [facility] 067[address] Active as directed Medrol [facility] [address]-89 4 MG Orally once a day Active 1 tablet with food or milk in the morning Dicyclomine HCl [facility] [address]-29 20 MG Orally Four times a day Active 1 tablet Leflunomide [facility] [address]-82 20 MG Orally Once a day Jun 07, 2017 Oct 05, 2017 Active 1 tablet Lisinopril [facility] [address]-98 40 MG Orally Once a day Active 1 tablet Levothyroxine Sodium [facility] [address]-23 75 MCG Orally Once a day Active 1 tablet Metformin HCl [facility] [address]-45 1000 MG Orally Twice a day Active 1 tablet with meals Synvisc One [facility] [address]-69 48 MG/6ML Intra-articular Jun 07, 2017 Active in clinic Timolol [facility] [address]-09 0.5 % Ophthalmic Once a day Active 1 drop into affected eye Hydrochlorothiazide [facility] [address]-89 12.5 MG Orally Once a day Active 1 capsule Vital Signs Date/Time: Jun 28, 2017 Blood Pressure Systolic 130 mm Hg Weight 193 lbs Height 60 in Temperature 97.6 F Cardiac Monitoring Heart Rate 68 /min Blood Pressure Diastolic 68 mm Hg Results No Known Results Summary Purpose eClinicalWorks Submission
--- OUTSIDE RECORDS SUMMARY | 2019-04-09 12:37 | XMS REPORT ---
Author Author Juan Anderson Organization eClinicalWorks Address Unknown Phone Unavailable Care Team Providers Care Management Assistant Name Role Phone Juan Anderson CP Unavailable Allergies, Adverse Reactions, Alerts Substance Reaction [...] factor, multiple sites M06.09 Active Problem Other buttermilk drier operator (current) drug therapy Z79.899 Active Assessment Knee osteoarthritis M17.9 Active Medications Medication Code System Code Instructions Start Date End Date Status Dosage Metformin HCl ND 62330176862 1000 MG Orally Twice a day Active 1 tablet with meals Gabapentin ND 26974243727 300 MG Orally Three times a day Active 1 capsule Clopidogrel Bisulfate ND 06866760213 75 MG Orally Once a day Active 1 tablet Timolol [facility] 48774535750 0.5 % Ophthalmic Once a day Active 1 drop into affected eye Dicyclomine HCl ND 16933068882 20 MG Orally Four times a day Active 1 tablet Lisinopril ND 83847914039 40 MG Orally Once a day Active 1 tablet FreeStyle Lite [facility] 74963641009 Active as directed Levothyroxine Sodium ND 93333050850 75 MCG Orally Once a day Active 1 tablet Hydroxychloroquine Sulfate ND 97446108489 200MG once a day Active TAKE ONE TABLET BY MOUTH TWICE DAILY WITH FOOD OR MILK Hydrochlorothiazide ND 53728818328 12.5 MG Orally Once a day Active 1 capsule Vital Signs Date/Time: January 15, 2018 BMI 37.30 Index Weight 191 lbs Height 60 in Temperature 97.0 F Cardiac Monitoring Heart Rate 64 /min Blood Pressure Diastolic 70 mm Hg Blood Pressure Systolic 138 mm Hg Results No Known Results Summary Purpose eClinicalWorks Submission
--- OUTSIDE RECORDS SUMMARY | 2019-04-09 12:37 | XMS REPORT ---
Author Author Lio De La O Organization eClinicalWorks Address Unknown Phone Unavailable Care Team Providers Care Building Consultant Name Role Phone Lio De La O CP Unavailable Allergies No Known Allergies Problems Problem Type Condition Code Onset Dates Condition Status Problem Fibromyalgia M79.7 Active Problem Rheumatoid arthritis without rheumatoid factor, multiple sites M06.09 Active Problem Knee osteoarthritis M17.9 Active Problem Other care home (current) drug therapy Z79.899 Active Medications No Known Medications Results No Known Results Summary Purpose eClinicalWorks Submission
--- OUTSIDE RECORDS SUMMARY | 2019-04-09 12:37 | XMS REPORT ---
Author Author Lio De La O Organization eClinicalWorks Address Unknown Phone Unavailable Care Team Providers Care Stitchdown Toe Former Name Role Phone Lio De La O CP Unavailable Allergies No Known Allergies Problems Problem Type Condition Code Onset Dates Condition Status Problem Fibromyalgia M79.7 Active Problem Rheumatoid arthritis without rheumatoid factor, multiple sites M06.09 Active Problem Knee osteoarthritis M17.9 Active Problem Other [facility] (current) drug therapy Z79.899 Active Medications No Known Medications Results No Known Results Summary Purpose eClinicalWorks Submission
--- OUTSIDE RECORDS SUMMARY | 2019-04-09 12:37 | XMS REPORT ---
Author Author Juan Anderson [facility] eClinicalWorks Address Unknown Phone Unavailable Care Team Providers Care Program Director Scouting Name Role Phone Juan Anderson CP Unavailable Allergies No Known Allergies Problems Problem Type Condition Code Onset Dates Condition Status Problem Fibromyalgia M79.7 Active Problem Rheumatoid arthritis without rheumatoid factor, multiple sites M06.09 Active Problem Knee osteoarthritis M17.9 Active Assessment Rheumatoid arthritis without rheumatoid factor, multiple sites M06.09 Active Assessment Other nursing home (current) drug therapy Z79.899 Active Problem Other terminal supervisor (current) drug therapy Z79.899 Active Medications No Known Medications Results No Known Results Summary Purpose eClinicalWorks Submission
--- OUTSIDE RECORDS SUMMARY | 2019-04-09 12:38 | XMS REPORT ---
Author Author Lio De La O Organization eClinicalWorks Address Unknown Phone Unavailable Care Team Providers Care Annealing Oven Operator Name Role Phone Lio De La O CP Unavailable Allergies No Known Allergies Problems Problem Type Condition Code Onset Dates Condition Status Problem Fibromyalgia M79.7 Active Problem Rheumatoid arthritis without rheumatoid factor, multiple sites M06.09 Active Problem Knee osteoarthritis M17.9 Active Problem Other termite control representative (current) drug therapy Z79.899 Active Medications No Known Medications Results No Known Results Summary Purpose eClinicalWorks Submission
--- OUTSIDE RECORDS SUMMARY | 2019-04-09 12:38 | XMS REPORT ---
Author Author Juan Anderson [facility] eClinicalWorks Address Unknown Phone Unavailable Care Team Providers Care Disability Specialist Name Role Phone Juan Anderson Unavailable Allergies, [...] Problem Knee osteoarthritis M17.9 Active Assessment Other detention (current) drug therapy Z79.899 Active Assessment Knee osteoarthritis M17.9 Active Problem Other termination clerk (current) drug therapy Z79.899 Active Assessment Rheumatoid arthritis without rheumatoid factor, multiple sites M06.09 Active Medications Medication Code System Code Instructions Start Date End Date Status Dosage Clopidogrel Bisulfate [facility] 13496345124 75 MG Orally Once a day Active 1 tablet FreeStyle Lite [facility] 79819553515 Active as directed Metoprolol-HCTZ ER ND 43920539724 25-12.5 MG Orally Once a day Active 1 tablet Dicyclomine HCl [facility] 11888905678 20 MG Orally Four times a day Active 1 tablet Hydroxychloroquine Sulfate ND 37703629487 200MG once a day Active TAKE ONE TABLET BY MOUTH TWICE DAILY WITH FOOD OR MILK Metformin HCl ND 69617638110 1000 MG Orally Twice a day Active 1 tablet with meals Lisinopril ND 25845950733 40 MG Orally Once a day Active 1 tablet Hydrochlorothiazide ND 17008462933 12.5 MG Orally Once a day Active 1 capsule Gabapentin ND 98761148027 300 MG Orally Three times a day Active 1 capsule Levothyroxine Sodium ND 09236454627 75 MCG Orally Once a day Active 1 tablet Timolol [facility] 09156396033 0.5 % Ophthalmic Once a day Active 1 drop into affected eye Vital Signs Date/Time: December 25, 2017 BMI 37.49 Index Weight 192 lbs Height 60 in Temperature 97.8 F Cardiac Monitoring Heart Rate 70 /min Blood Pressure Diastolic 70 mm Hg Blood Pressure Systolic 126 mm Hg Results No Known Results Summary Purpose eClinicalWorks Submission
--- OUTSIDE RECORDS SUMMARY | 2019-04-09 12:38 | XMS REPORT ---
Author Author Juan Anderson [facility] eClinicalWorks Address Unknown Phone Unavailable Care Team Providers Care Heeler Machine Name Role Phone Juan Anderson Unavailable Allergies, [...] Active Assessment Knee osteoarthritis M17.9 Active Assessment Rheumatoid arthritis without rheumatoid factor, multiple sites M06.09 Active Problem Other correction (current) drug therapy Z79.899 Active Medications Medication Code System Code Instructions Start Date End Date Status Dosage Metformin HCl ND 62409873532 1000 MG Orally Twice a day Active 1 tablet with meals PredniSONE ND 84507044124 5 MG Orally Once a day April 23, 2018 Active 1 tab FreeStyle Lite ND 44428838779 Active as directed Tylenol Arthritis Pain NDC 0 650 MG Orally as needed Active 2 tablets as needed Dicyclomine HCl ND 27201773277 20 MG Orally Four times a day Active 1 tablet Methotrexate NDC 0 2.5mg Orally Once a week April 23, 2018 March 02, 2019 Active 6 tabs altogether Lisinopril ND 31822400682 40 MG Orally Once a day Active 1 tablet Levothyroxine Sodium ND 29643906037 75 MCG Orally Once a day Active 1 tablet Clopidogrel Bisulfate ND 22758754245 75 MG Orally Once a day Active 1 tablet Folic Acid ND 86229688875 1 MG Orally Once a day April 23, 2018 Active 1 tablet Hydrochlorothiazide ND 15720961063 12.5 MG Orally Once a day Active 1 capsule Timolol ND 36032692398 0.5 % Ophthalmic Once a day Active 1 drop into affected eye Hydroxychloroquine Sulfate ND 57789207405 200MG bid December 02, 2018 Active take one tablet by mouth twice daily with food or milk Vital Signs Date/Time: Sep 16, 2018 BMI 37 Index Weight 187.4 lbs Height 60 in Temperature 96.8 F Cardiac Monitoring Heart Rate 76 /min Blood Pressure Diastolic 70 mm Hg Blood Pressure Systolic 126 mm Hg Results No Known Results Summary Purpose eClinicalWorks Submission
--- OUTSIDE RECORDS SUMMARY | 2019-04-09 12:38 | XMS REPORT ---
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 Assessment Rheumatoid arthritis without rheumatoid factor, multiple sites M06.09 Active Medications Medication Code System Code Instructions Start Date End Date Status Dosage FreeStyle Lite [facility] 78083515539 Active as directed Metformin HCl ND 83332524222 1000 MG Orally Twice a day Active 1 tablet with meals PredniSONE NDC 0 5 MG Orally Once a day April 23, 2018 Aug 21, 2018 Active 1 tab Dicyclomine HCl ND 15883019643 20 MG Orally Four times a day Active 1 tablet Levothyroxine Sodium ND 02274432178 75 MCG Orally Once a day Active 1 tablet Hydrochlorothiazide ND 44652705600 12.5 MG Orally Once a day Active 1 capsule Tylenol Arthritis Pain NDC 0 650 MG Orally as needed Active 2 tablets as needed Methotrexate NDC 0 2.5mg Orally Once a week April 23, 2018 Aug 21, 2018 Active 4 tabs x 1wk and then take 6 tabs Timolol ND 94043154478 0.5 % Ophthalmic Once a day Active 1 drop into affected eye Folic Acid ND 80839348626 1 MG Orally Once a day April 23, 2018 Aug 21, 2018 Active 1 tablet Lisinopril ND 72867631597 40 MG Orally Once a day Active 1 tablet Hydroxychloroquine Sulfate ND 44050878842 200MG Active TAKE ONE TABLET BY MOUTH TWICE DAILY WITH FOOD OR MILK Clopidogrel Bisulfate [facility] 48022622421 75 MG Orally Once a day Active 1 tablet Vital Signs Date/Time: April 23, 2018 BMI 37.88 Index Weight 194 lbs Height 60 in Temperature 97.0 F Cardiac Monitoring Heart Rate 60 /min Blood Pressure Diastolic 70 mm Hg Blood Pressure Systolic 120 mm Hg Results Name Result Date Reference Range Unit Abnormality Flag COMPREHENSIVE METABOLIC PANEL W/EGFR ----CALCIUM 8.8 22392820 8.6-10.4 mg/dL N ----CARBON DIOXIDE 26 20180423 20-31 mmol/L N ----ALT 8 20180423 6-29 U/L N ----CREATININE 1.30 20180423 0.60-0.93 mg/dL H ----AST 15 20180423 10-35 U/L N ----eGFR NON-AFR. BHUTANESE 41 [id number] > OR=60 mL/min/1.73m2 L ----ALKALINE PHOSPHATASE 59 20180423 33-130 U/L N ----eGFR 47 07799152 > OR=60 mL/min/1.73m2 L ----BILIRUBIN, TOTAL 0.4 98296579 0.2-1.2 mg/dL N ----BUN/CREATININE RATIO 23 20180423 6-22 (calc) H ----ALBUMIN/GLOBULIN RATIO 1.3 45875923 1.0-2.5 (calc) N ----SODIUM 145 85994934 135-146 mmol/L N ----GLOBULIN 2.6 51218406 1.9-3.7 g/dL (calc) N ----POTASSIUM 5.1 44937084 3.5-5.3 mmol/L N ----GLUCOSE 87 48445950 65-99 mg/dL N ----CHLORIDE 115 20180423 98-110 mmol/L H ----ALBUMIN 3.4 73744010 3.6-5.1 g/dL L ----UREA NITROGEN (BUN) 30 20180423 7-25 mg/dL H ----PROTEIN, TOTAL 6.0 58840097 6.1-8.1 g/dL L SED RATE BY MODIFIED WESTERGREN ----SED RATE BY MODIFIED WESTERGREN 36 [id number] < OR=30 mm/h H C-REACTIVE PROTEIN ----C-REACTIVE PROTEIN 2.7 20180423 <8.0 mg/L N CBC (INCLUDES DIFF/PLT) ----MCHC 33.1 72857771 32.0-36.0 g/dL N ----MCH 33.0 20180423 27.0-33.0 pg N ----PLATELET COUNT 170 20180423 140-400 Thousand/uL N ----RDW 11.9 07790176 11.0-15.0 % N ----BASOPHILS 0.6 78336453 % N ----ABSOLUTE NEUTROPHILS 2027 11721070 8812-3852 cells/uL N ----ABSOLUTE LYMPHOCYTES 1066 20180423 850-3900 cells/uL N ----MPV 10.6 85178766 7.5-12.5 fL N ----ABSOLUTE BASOPHILS 22 34573143 0-200 cells/uL N ----HEMATOCRIT 29.0 20850651 35.0-45.0 % L ----NEUTROPHILS 56.3 15708939 % N ----MCV 99.7 12818152 80.0-100.0 fL N ----RED BLOOD CELL COUNT 2.91 04389932 3.80-5.10 Million/uL L ----ABSOLUTE MONOCYTES 367 74787140 200-950 cells/uL N ----ABSOLUTE EOSINOPHILS 119 00829781 15-500 cells/uL N ----HEMOGLOBIN 9.6 98861707 11.7-15.5 g/dL L ----EOSINOPHILS 3.3 58470805 % N ----WHITE BLOOD CELL COUNT 3.6 73655309 3.8-10.8 Thousand/uL L ----LYMPHOCYTES 29.6 04478416 % N ----MONOCYTES 10.2 66901423 % N Summary Purpose eClinicalWorks Submission
--- OUTSIDE RECORDS SUMMARY | 2019-04-09 12:38 | XMS REPORT ---
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 43741946446 12.5 MG Orally Once a day Active 1 capsule Folic Acid ND 68453362139 1 MG Orally Once a day April 23, 2018 Active 1 tablet Clopidogrel Bisulfate ND 73070665659 75 MG Orally Once a day Active 1 tablet Levothyroxine Sodium ND 25024919590 75 MCG Orally Once a day Active 1 tablet Lisinopril ND 02024570610 40 MG Orally Once a day Active 1 tablet PredniSONE ND 23695929910 5 MG Orally Once a day April 23, 2018 Active 1 tab Hydroxychloroquine Sulfate ND 46244576332 200MG bid December 02, 2018 Active take one tablet by mouth twice daily with food or milk Timolol ND 30158879446 0.5 % Ophthalmic Once a day Active 1 drop into affected eye Metformin HCl ND 24014167232 1000 MG Orally Twice a day Active 1 tablet with meals FreeStyle Lite ND 71345948657 Active as directed Methotrexate NDC 0 2.5mg Orally Once a week April 23, 2018 March 02, 2019 Active 6 tabs altogether Tylenol Arthritis Pain NDC 0 650 MG Orally as needed Active 2 tablets as needed Dicyclomine HCl [facility] 30625618210 20 MG Orally Four times a day Active 1 tablet Vital Signs Date/Time: Sep 03, 2018 BMI 37.04 Index Weight 189.7 lbs Height 60 in Temperature 97.0 F Cardiac Monitoring Heart Rate 60 /min Blood Pressure Diastolic 60 mm Hg Blood Pressure Systolic 112 mm Hg Results Name Result Date Reference Range Unit Abnormality Flag COMPREHENSIVE METABOLIC PANEL W/EGFR ----CALCIUM 9.1 58214785 8.6-10.4 mg/dL N ----CARBON DIOXIDE 25 44679255 20-32 mmol/L N ----ALT 10 31580841 6-29 U/L N ----CREATININE 1.32 76121555 0.60-0.93 mg/dL H ----AST 22 70259963 10-35 U/L N ----eGFR NON-AFR. BRAZILIAN 40 62324120 > OR=60 mL/min/1.73m2 L ----ALKALINE PHOSPHATASE 49 03559277 33-130 U/L N ----eGFR 46 88350298 > OR=60 mL/min/1.73m2 L ----BILIRUBIN, TOTAL 0.4 56591238 0.2-1.2 mg/dL N ----BUN/CREATININE RATIO 20 94292465 6-22 (calc) N ----ALBUMIN/GLOBULIN RATIO 1.5 24415641 1.0-2.5 (calc) N ----SODIUM 146 82579086 135-146 mmol/L N ----GLOBULIN 2.4 66856904 1.9-3.7 g/dL (calc) N ----POTASSIUM 4.9 30072345 3.5-5.3 mmol/L N ----GLUCOSE 103 11606492 65-99 mg/dL H ----CHLORIDE 116 81137433 98-110 mmol/L H ----ALBUMIN 3.7 71681145 3.6-5.1 g/dL N ----UREA NITROGEN (BUN) 26 12544362 7-25 mg/dL H ----PROTEIN, TOTAL 6.1 96671509 6.1-8.1 g/dL N SED RATE BY MODIFIED WESTERGREN ----SED RATE BY MODIFIED WESTERGREN 19 77641153 < OR=30 mm/h N C-REACTIVE PROTEIN ----C-REACTIVE PROTEIN 1.8 53364476 <8.0 mg/L N CBC (INCLUDES DIFF/PLT) ----MCHC 33.7 90351706 32.0-36.0 g/dL N ----MCH 34.5 03584850 27.0-33.0 pg H ----PLATELET COUNT 150 69385078 140-400 Thousand/uL N ----RDW 11.3 30683092 11.0-15.0 % N ----BASOPHILS 0.9 67344971 % N ----ABSOLUTE NEUTROPHILS 2608 14644057 6954-4141 cells/uL N ----ABSOLUTE LYMPHOCYTES 1233 13679357 850-3900 cells/uL N ----MPV 11.4 21061252 7.5-12.5 fL N ----ABSOLUTE BASOPHILS 41 58188544 0-200 cells/uL N ----HEMATOCRIT 31.5 58023299 35.0-45.0 % L ----NEUTROPHILS 56.7 46235732 % N ----MCV 102.6 88061810 80.0-100.0 fL H ----RED BLOOD CELL COUNT 3.07 14898286 3.80-5.10 Million/uL L ----ABSOLUTE MONOCYTES 529 01066372 200-950 cells/uL N ----ABSOLUTE EOSINOPHILS 189 89001969 15-500 cells/uL N ----HEMOGLOBIN 10.6 24676583 11.7-15.5 g/dL L ----EOSINOPHILS 4.1 22193728 % N ----WHITE BLOOD CELL COUNT 4.6 28722713 3.8-10.8 Thousand/uL N ----LYMPHOCYTES 26.8 07003998 % N ----MONOCYTES 11.5 23324849 % N Summary Purpose eClinicalWorks Submission
--- OUTSIDE RECORDS SUMMARY | 2019-04-09 12:38 | XMS REPORT ---
Author Author Lio De La O Organization eClinicalWorks Address Unknown Phone Unavailable Care Team Providers Care Principal Planner Name Role Phone Lio De La O CP Unavailable Allergies No Known Allergies Problems Problem Type Condition Code Onset Dates Condition Status Problem Fibromyalgia M79.7 Active Problem Rheumatoid arthritis without rheumatoid factor, multiple sites M06.09 Active Problem Knee osteoarthritis M17.9 Active Problem Other halfway (current) drug therapy Z79.899 Active Medications No Known Medications Results No Known Results Summary Purpose eClinicalWorks Submission
--- OUTSIDE RECORDS SUMMARY | 2019-04-09 12:38 | XMS REPORT ---
Author Author Lio De La O Organization eClinicalWorks Address Unknown Phone Unavailable Care Team Providers Care City Treasurer Name Role Phone Lio De La O CP Unavailable Allergies No Known Allergies Problems Problem Type Condition Code Onset Dates Condition Status Problem Fibromyalgia M79.7 Active Problem Rheumatoid arthritis without rheumatoid factor, multiple sites M06.09 Active Problem Knee osteoarthritis M17.9 Active Problem Other assisted (current) drug therapy Z79.899 Active Medications No Known Medications Results No Known Results Summary Purpose eClinicalWorks Submission
--- OUTSIDE RECORDS SUMMARY | 2019-04-09 12:39 | XMS REPORT ---
Author Author Juan Anderson [facility] eClinicalWorks Address Unknown Phone Unavailable Care Team Providers Care Amplifier Mechanic Name Role Phone Juan Anderson Unavailable Allergies, [...] factor, multiple sites M06.09 Active Assessment Other computer terminal operator (current) drug therapy Z79.899 Active Problem Other computer terminal operator (current) drug therapy Z79.899 Active Medications Medication Code System Code Instructions Start Date End Date Status Dosage Timolol [facility] 46432747938 0.5 % Ophthalmic Once a day Active 1 drop into affected eye Lisinopril ND 06622311697 40 MG Orally Once a day Active 1 tablet FreeStyle Lite ND 83320811072 Active as directed Folic Acid ND 40429314411 1 MG Orally Once a day April 23, 2018 Active 1 tablet Hydrochlorothiazide ND 31513010257 12.5 MG Orally Once a day Active 1 capsule Metformin HCl ND 79629423189 1000 MG Orally Twice a day Active 1 tablet with meals Dicyclomine HCl ND 46456676370 20 MG Orally Four times a day Active 1 tablet PredniSONE ND 88400047587 5 MG Orally Once a day April 23, 2018 Active 1 tab Clopidogrel Bisulfate ND 24373338833 75 MG Orally Once a day Active 1 tablet Levothyroxine Sodium ND 94601250943 75 MCG Orally Once a day Active 1 tablet Tylenol Arthritis Pain NDC 0 650 MG Orally as needed Active 2 tablets as needed Methotrexate ND 42184340196 2.5mg Orally Once a week April 23, 2018 Active 6 tabs altogether Vital Signs Date/Time: March 10, 2019 BMI 38.43 Index Weight 196.8 lbs Height 60 in Temperature 97.6 F Cardiac Monitoring Heart Rate 68 /min Blood Pressure Diastolic 70 mm Hg Blood Pressure Systolic 122 mm Hg Results No Known Results Summary Purpose eClinicalWorks Submission
--- OUTSIDE RECORDS SUMMARY | 2019-04-09 12:39 | XMS REPORT ---
Author Author Juan Anderson [facility] eClinicalWorks Address Unknown Phone Unavailable Care Team Providers Care Vp Public Relations Name Role Phone Juan Anderson Unavailable Allergies, [...] factor, multiple sites M06.09 Active Assessment Other termite inspector (current) drug therapy Z79.899 Active Problem Other termite inspector (current) drug therapy Z79.899 Active Medications Medication Code System Code Instructions Start Date End Date Status Dosage Lisinopril ND 78858069944 40 MG Orally Once a day Active 1 tablet Dicyclomine HCl ND 50907884642 20 MG Orally Four times a day Active 1 tablet Timolol ND 68545458664 0.5 % Ophthalmic Once a day Active 1 drop into affected eye Clopidogrel Bisulfate ND 66866428774 75 MG Orally Once a day Active 1 tablet Folic Acid ND 81460748751 1 MG Orally Once a day April 23, 2018 Active 1 tablet PredniSONE ND 17825726033 5 MG Orally Once a day April 23, 2018 Active 1 tab Tylenol Arthritis Pain NDC 0 650 MG Orally as needed Active 2 tablets as needed Levothyroxine Sodium ND 36584350547 75 MCG Orally Once a day Active 1 tablet FreeStyle Lite ND 50698044503 Active as directed Metformin HCl ND 60553633899 1000 MG Orally Twice a day Active 1 tablet with meals Methotrexate ND 86124456466 2.5mg Orally Once a week April 23, 2018 March 02, 2019 Active 6 tabs altogether Hydrochlorothiazide ND 48642060609 12.5 MG Orally Once a day Active 1 capsule Vital Signs Date/Time: December 15, 2018 BMI 37.08 Index Weight 189.9 lbs Height 60 in Temperature 97.4 F Cardiac Monitoring Heart Rate 64 /min Blood Pressure Diastolic 78 mm Hg Blood Pressure Systolic 130 mm Hg Results No Known Results Summary Purpose eClinicalWorks Submission
--- OUTSIDE RECORDS SUMMARY | 2019-04-09 12:39 | XMS REPORT ---
Author Author Lio De La O Organization eClinicalWorks Address Unknown Phone Unavailable Care Team Providers Care Hi Teacher Name Role Phone Lio De La O CP Unavailable Allergies No Known Allergies Problems Problem Type Condition Code Onset Dates Condition Status Problem Fibromyalgia M79.7 Active Problem Rheumatoid arthritis without rheumatoid factor, multiple sites M06.09 Active Problem Knee osteoarthritis M17.9 Active Assessment Hip pain, left M25.552 Active Problem Other gas line installer (current) drug therapy Z79.899 Active Medications No Known Medications Results No Known Results Summary Purpose eClinicalWorks Submission
--- OUTSIDE RECORDS SUMMARY | 2019-04-09 12:39 | XMS REPORT ---
Author Author Lio De La O Organization eClinicalWorks Address Unknown Phone Unavailable Care Team Providers Care Bookbinder Chief Name Role Phone Lio De La O CP Unavailable Allergies No Known Allergies Problems Problem Type Condition Code Onset Dates Condition Status Problem Fibromyalgia M79.7 Active Problem Rheumatoid arthritis without rheumatoid factor, multiple sites M06.09 Active Problem Knee osteoarthritis M17.9 Active Problem Other skilled nursing (current) drug therapy Z79.899 Active Medications No Known Medications Results No Known Results Summary Purpose eClinicalWorks Submission
--- OUTSIDE RECORDS SUMMARY | 2019-04-09 12:39 | XMS REPORT ---
Author Author Juan Anderson [facility] eClinicalWorks Address Unknown Phone Unavailable Care Team Providers Care Industrial Safety And Health Technician Name Role Phone Juan Anderson Unavailable Allergies, [...] factor, multiple sites M06.09 Active Problem Other longwall shearer operator (current) drug therapy Z79.899 Active Assessment Knee osteoarthritis M17.9 Active Medications Medication Code System Code Instructions Start Date End Date Status Dosage Tylenol Arthritis Pain NDC 0 650 MG Orally as needed Active 2 tablets as needed Levothyroxine Sodium ND 66308603684 75 MCG Orally Once a day Active 1 tablet Methotrexate NDC 0 2.5mg Orally Once a week April 23, 2018 Nov 10, 2018 Active 6 tabs altogether Clopidogrel Bisulfate ND 14803379433 75 MG Orally Once a day Active 1 tablet Hydrochlorothiazide ND 92526262038 12.5 MG Orally Once a day Active 1 capsule Metformin HCl ND 52442287344 1000 MG Orally Twice a day Active 1 tablet with meals FreeStyle Lite ND 06632059036 Active as directed Lisinopril ND 17943151467 40 MG Orally Once a day Active 1 tablet Hydroxychloroquine Sulfate ND 47076062383 200MG Nov 10, 2018 Active take one tablet by mouth twice daily with food or milk Folic Acid ND 15540588525 1 MG Orally Once a day April 23, 2018 Active 1 tablet Timolol ND 36388329479 0.5 % Ophthalmic Once a day Active 1 drop into affected eye PredniSONE NDC 0 5 MG Orally Once a day April 23, 2018 Active 1 tab Dicyclomine HCl ND 49050778467 20 MG Orally Four times a day Active 1 tablet Vital Signs Date/Time: May 14, 2018 BMI 38.08 Index Weight 195 lbs Height 60 in Temperature 97.3 F Cardiac Monitoring Heart Rate 72 /min Blood Pressure Diastolic 70 mm Hg Blood Pressure Systolic 134 mm Hg Results No Known Results Summary Purpose eClinicalWorks Submission
--- OUTSIDE RECORDS SUMMARY | 2019-04-09 12:39 | XMS REPORT ---
Author Author Juan Anderson [facility] eClinicalWorks Address Unknown Phone Unavailable Care Team Providers Care Investigator Claims Name Role Phone Juan Anderson Unavailable Allergies, [...] M17.9 Active Assessment Knee osteoarthritis M17.9 Active Problem Other intermission coordinator (current) drug therapy Z79.899 Active Assessment Rheumatoid arthritis without rheumatoid factor, multiple sites M06.09 Active Medications Medication Code System Code Instructions Start Date End Date Status Dosage Hydrochlorothiazide [facility] [place] 90073842344 12.5 MG Orally Once a day Active 1 capsule FreeStyle Lite [facility] [place] 61607470121 Active as directed Dicyclomine HCl ND 58182016374 20 MG Orally Four times a day Active 1 tablet Levothyroxine Sodium ND 21291507925 75 MCG Orally Once a day Active 1 tablet Tylenol Arthritis Pain NDC 0 650 MG Orally as needed Active 2 tablets as needed Hydroxychloroquine Sulfate ND 89045814508 200MG Active TAKE ONE TABLET BY MOUTH TWICE DAILY WITH FOOD OR MILK Clopidogrel Bisulfate ND 13606250062 75 MG Orally Once a day Active 1 tablet Metformin HCl ND 99027394825 1000 MG Orally Twice a day Active 1 tablet with meals Timolol [facility] [place] 19465934075 0.5 % Ophthalmic Once a day Active 1 drop into affected eye Folic Acid ND 84365238629 1 MG Orally Once a day April 23, 2018 Active 1 tablet Methotrexate NDC 0 2.5mg Orally Once a week April 23, 2018 Active 4 tabs x 1wk and then take 6 tabs Lisinopril ND 81793960698 40 MG Orally Once a day Active 1 tablet PredniSONE NDC 0 5 MG Orally Once a day April 23, 2018 Active 1 tab Vital Signs Date/Time: May 08, 2018 BMI 39.10 Index Weight 193.6 lbs Height 59 in Temperature 98.2 F Cardiac Monitoring Heart Rate 70 /min Blood Pressure Diastolic 72 mm Hg Blood Pressure Systolic 122 mm Hg Results No Known Results Summary Purpose eClinicalWorks Submission
--- OUTSIDE RECORDS SUMMARY | 2019-04-09 12:39 | XMS REPORT ---
Author Author [facility] Address Unknown Phone Unavailable Care Team Providers Care Gluing Machine Operator Electronic Name Role Phone Cheryl SHARP Unavailable Unavailable Problems This patient has no known problems. Allergies, Adverse Reactions, Alerts This patient has no known allergies or adverse reactions. Medications This patient has no known medications. Results Test Description Test Time Test Comments Text Results Atomic Results Result Comments CTA NECK 2019-03-13 13:39:00 [place] [address] Patient Name: CATRACHITO RICO MR #: [id number] : 1945 Age/Sex: 73/F Req #: [id number] Adm Physician: Ordered by: YASMIN SHARP MD Report #: [id number] Location: CT Room/Bed: Procedure: [id number] CT/CTA NECK Exam Date: 03/13/19 Exam Time: 919 REPORT STATUS: Signed History: Carotid stenosis Comparison studies:None Technique: Axial images were obtained from the thoracic inlet. Coronal and sagittal images reconstructed from the axial data. Additional multiplanar MIP and volume rendered 3-D images were provided. Automated stenoses calculations were also performed on a stand alone workstation by the radiologist (these images are available on the PACS. Intravenous contrast: 100 cc of Omnipaque 300. If present, stenosis is calculated utilizing the NASCET method which calculates the degree of stenosis with reference to the normal lumen of the carotid artery distal to the stenosis. Findings: Aortic arch and great vessels: Moderate scattered calcified plaque throughout the arch. Mild stenosis due to calcified plaque at the origins of the subclavian arteries. Calcified plaque at the origin of the right brachiocephalic and left common carotid arteries do not result in significant stenosis. Right carotid artery: Calcified plaque at the origin does not result in significant stenosis. Calcified and soft plaque in any distal right common carotid artery just proximal to the bifurcation results in less than 20% stenosis. Right carotid bulb: Moderate calcified and mild soft plaque at the right carotid bulb with approximately 15% stenosis Right internal carotid artery: Patent, no stenosis. Left common carotid artery: Facet arthrosis on the left at C3-C 4 and on the right at C4-C5. Calcified plaque at the origin does not result significant stenosis. Soft plaque versus mild intimal thickening in the distal left common carotid artery results in less than 20% stenosis. Left carotid bulb: Changes of prior endarterectomy. No (0%) stenosis. Internal carotid arteries: Patent, no abnormalities. Vertebral arteries: Patent, no abnormalities. Included [place] of [place]: Patent internal carotid arteries with dense calcified plaque in the bilateral cavernous and paraophthalmic ICA segments which result in only mild stenosis. Patent, no proximal branch occlusion or stenosis in the bilateral middle cerebral arteries and anterior cerebral arteries. Patent intradural vertebral arteries with mild calcified plaque in the proximal V4 segments which result in only mild stenosis. Patent, no abnormalities in the basilar artery. No proximal branch occlusion in the included posterior cerebral arteries.. Incidental f indings: Sternotomy wires for previous cardiothoracic surgery. Hyperdensity along the superolateral margin of the left globe possibly glaucoma shunt reservoir which can be correlated with ophthalmologic history. IMPRESSION: 1. Atherosclerotic plaques as described. 2. Mild stenosis (< 20%) in the distal common carotid arteries. 3. Approximately 15% stenosis at the right carotid bulb. 4. No (0%) stenosis at the left carotid bulb status post left carotid endarterectomy. 5. Mild stenosis in the carotid siphons and intradural vertebral arteries. Signed by: Dr. Sincere Jain M.D. on 03/13/2019 2:08 PM Dictated By: SINCERE JAIN MD [id number] Transcribed By: SUDHIR on 03/13/19 0209 COPY TO: YASMIN SHARP MD
--- NOTE | 2019-04-09 13:52 | Diagnostic Imaging Report ---
EXAMINATION: CHEST SINGLE (PORTABLE) INDICATION: Shortness of breath COMPARISON: None FINDINGS: TUBES and LINES: Median sternotomy wires overlie the midline thorax. LUNGS: The lungs are moderately inflated. There is a focal rounded opacity at the medial left lung base which silhouettes the left hemidiaphragm. PLEURA: No pleural effusion or pneumothorax. HEART AND MEDIASTINUM: The cardiomediastinal silhouette is normal in size and contour. BONES AND SOFT TISSUES: No acute fracture or dislocation. UPPER ABDOMEN: No free air under the diaphragm. IMPRESSION: Rounded opacity at the medial left lung base silhouetting the left hemidiaphragm may represent overlapping diaphragmatic contour versus hernia or alternatively parenchymal lung lesion. RECOMMENDATION: PA and lateral chest radiograph. Signed by: Kimmy Sams MD on 04/09/2019 1:49 PM
[2019-04-09 13:55] LABS: BASOPHILS % 0.1 % (0.0-1.0); EOSINOPHILS % 0.1 % (0.0-6.0); HEMATOCRIT 29.2 % (34.2-44.1); HEMOGLOBIN 9.4 g/dL (12.0-16.0); LYMPHOCYTES # (AUTO) 0.5 (1.0-3.2); LYMPHOCYTES % 7.5 % (18.0-39.1); MEAN CORPUSCULAR HEMOGLOBIN 34.4 pg (28-32); MEAN CORPUSCULAR HGB CONC 32.2 g/dL (31-35); MONOCYTES # (AUTO) 0.6 (0.2-0.8); MONOCYTES % 8.4 % (4.4-11.3); NEUTROPHILS # (AUTO) 5.7 (2.1-6.9); NEUTROPHILS % 82.5 % (38.7-80.0); PLATELET COUNT 167 x10e3/uL (140-360); RED BLOOD COUNT 2.73 x10e6/uL (3.6-5.1); RED CELL DISTRIBUTION WIDTH 14.1 % (11.7-14.4)
[2019-04-09 13:57] LABS: BILIRUBIN,URINE NEGATIVE (NEGATIVE); CLARITY,URINE SL CLOUDY (CLEAR); COLOR,URINE YELLOW (YELLOW); KETONES,URINE NEGATIVE (NEGATIVE); LEUKOCYTE ESTERASE ,URINE NEGATIVE (NEGATIVE); NITRITE,URINE NEGATIVE (NEGATIVE); PROTEIN,URINE DIPSTICK 2+ (NEGATIVE); URINE UROBILINOGEN 0.2 mg/dL (0.2 - 1)
[2019-04-09 14:07] LABS: INR 1.1; PROTHROMBIN TIME 14.7 seconds (11.9-14.5)
[2019-04-09 14:12] LABS: BACTERIA,URINE MODERATE /HPF; EPITHELIAL CELLS,URINE MODERATE /LPF; TRANSITIONAL EPI CELLS,URINE FEW
[2019-04-09 14:17] LABS: ALANINE AMINOTRANSFERASE < 6 IU/L (0-55); ALBUMIN 3.5 g/dL (3.5-5.0); ALBUMIN/GLOBULIN RATIO 1.1 (0.8-2.0); ALKALINE PHOSPHATASE 69 IU/L (40-150); ANION GAP 13.9 mmol/L (8-16); BLOOD UREA NITROGEN 22 mg/dL (7-26); BUN/CREATININE RATIO 16 (6-25); CALCIUM 9.2 mg/dL (8.4-10.2); CARBON DIOXIDE 21 mmol/L (22-29); CHLORIDE 104 mmol/L (98-107); CREATINE KINASE 92 IU/L (29-168); CREATININE, SERUM 1.39 mg/dL (0.57-1.11); EST GLOMERULAR FILTRATION RATE 37 ML/MIN (60-); GLUCOSE 116 mg/dL (74-118); MAGNESIUM 1.6 MG/DL (1.3-2.1); POTASSIUM 3.9 mmol/L (3.5-5.1); SODIUM 135 mmol/L (136-145)
[2019-04-09] MEDS ORDERED: DEXTROSE 50% SYRINGE 50 ML IV PRN (16:15)
[2019-04-09] MEDS ORDERED: FENTANYL CITRATE/PF 100MCG/2 ML INJ IV ONE (16:15)
[2019-04-09] MEDS ORDERED: FUROSEMIDE INJ 10 MG/ML 4 ML VIAL IV ONE (16:15)
[2019-04-09] MEDS: INSULIN REGULAR, HUMAN 100 UNIT/1 ML 3ML VIAL SQ SCH ×2 (16:17→20:58)
--- OUTSIDE RECORDS SUMMARY | 2019-04-09 16:24 | XMS REPORT | Clinical Summary ---
Author Author [facility] Address Unknown Phone Unavailable Care Team Providers Care Rice Field Worker Name Role Phone Samuel Allen MD PCP [...] Tmpry Cardiovasc N/A: N/A MEDTR[employer] Streamline - [id number] ar [facility] - Implanted: 10/15/2016 (Quantity not Implants CARDIAC on file) SRGRY [id number] / / Lead Pace Luciano Mycrdl Unipol Tmpry Cardiovasc N/A: N/A [employer] Streamline - [id number] [facility] - Implanted: 10/15/2016 (Quantity not Implants CARDIAC on file) SRGRY 04/24/2018 TFGT 19A / [id number] / [id number] Valve Aortic Hemo Peric Tiss Cardiovasc N/A: N/A ST LO W/[place] Tech Cuff 19mm Trifecta - ulnm STRUCTURAL [id number] Implants HEART Implanted: 10/15/2016 (Quantity not on file) 6500F / / Lead Pace Luciano Mycrdl Unipol Tmpry Cardiovasc N/A: N/A [employer] Streamline - [id number] [facility] - Implanted: 10/15/2016 (Quantity not Implants CARDIAC on file) SRGRY S 1100 [id number] / / Chamber Sgl Edy Dry Suct 1wy Vlv Surgical N/A: N/A TELEFLEX Adlt Pedi - [id number] Implants; MEDICAL Implanted: 10/15/2016 (Quantity not Expanders; on file) Extenders; Surgical Wires 02/05/2021 [id number] / / [id number] Patch Vasclr Perph 0.8x8cm Vascular N/A: N/A JOSE Vascu-Guard - [id number] Graft BIOSCIENCE Implanted: 10/15/2016 (Quantity not on [...] more information, alexandria helton contact: Feliciano Bonilla [address] [place] [address]
--- OUTSIDE RECORDS SUMMARY | 2019-04-09 16:25 | XMS REPORT | Continuity of Care Document ---
Author Author [employer] [facility] [employer] Address Unknown Phone Unavailable Care Team Providers Care Physical Therapy Supervisor Name Role Phone Score [employer] Unavailable Unavailable Problems Problem Status Onset Date Classification Date Reported Comments Source Z11.1 - ENCOUNTER FOR SCREENING FOR RE Active 07/18/2016 [facility] [place] 719.4 - PAIN IN JOINT Active 02/18/2013 [facility] [place] Fibromyalgia Active Problem 04/08/2019 [facility] Rheumatoid arthritis without rheumatoid factor, multiple sites Active Problem 04/08/2019 [facility] Knee osteoarthritis Active Problem 04/08/2019 [facility] Other [facility] drug therapy Active Diagnosis 04/08/2019 [facility] De [...] Active 1000 MG Orally Twice a day [facility] Metoprolol-HCTZ ER 1 tablet Orally Active 25-12.5 MG Orally Once a day [facility] Clopidogrel Bisulfate 1 tablet Orally Active 75 MG Orally Once a day [facility] Dicyclomine HCl 1 tablet Orally Active 20 MG Orally Four times a day [facility] Timolol 1 drop into affected eye Ophthalmic Active 0.5 % Ophthalmic Once a day [facility] Amlodipine Besylate 1 tablet Orally Active 10 MG Orally Once a day [facility] Gabapentin 1 capsule Orally Active 300 MG Orally Three times a day [facility] FreeStyle Lite as directed NA Active [facility] Levothyroxine Sodium 1 tablet Orally Active 75 MCG Orally Once a day [facility] Lisinopril 1 tablet Orally Active 40 MG Orally Once a day [facility] Hydroxychloroquine Sulfate TAKE [...] Right carotid artery atherosclerotic calcifications. 05/09/[place] [facility] [place]+ [place] Bilateral DX EXAMINATION: Bilateral [...] La O Diastolic (mm Hg) 70 09/16/2018 [facility] Systolic (mm Hg) [...] ADM Date DC Date Status Source OD [id number] 719.4 - PAIN IN JOINT SINCERE ALLEN 02/18/2013 Active [facility] [place] [facility] [place] [facility] [id number] Sincere Allen 02/16/2014 02/17/2014 [facility] [place] [facility] [place] [facility] [id number] Juan Anderson 05/09/2015 05/10/2015 [facility] [place] [facility] [place] [facility] [id number] Sincere Allen 04/10/2016 04/11/2016 [facility] [place] [facility] [place] [facility] [id number] [facility] 07/18/2016 07/19/2016 [facility] [place] [facility] [place] [facility] [id number] Sincere Allen 01/21/2018 01/22/2018 [facility] [place] [facility] [place] [facility] [id number] [facility] 12/22/2018 12/23/2018 [facility] [place] Procedures No Data Provided for This Section Assessment and Plan No Data Provided for This Section Plan of Care No Data Provided for This Section Social History Social History Date Source No data available for this section 12/23/2018 [facility] [place] Family History No Data Provided for This Section Advance Directives No Data Provided for This Section Functional Status No Data Provided for This Section
--- NOTE | 2019-04-09 17:33 | Diagnostic Imaging Report ---
EXAM: CT Chest WITHOUT intravenous contrast Date: 04/09/2019 4:05 PM INDICATION: Chest pain, shortness of breath COMPARISON: None TECHNIQUE: Chest was scanned utilizing a multidetector helical scanner from the lung apex through the level of the adrenal glands without administration of IV contrast. Coronal and sagittal reformations were obtained. Routine protocol was performed. IV CONTRAST: None. RADIATION DOSE: Total DLP: 458.58 mGy*cm. Dose modulation, iterative reconstruction, and/or weight based adjustment of the mA/kV was utilized to reduce the radiation dose to as low as reasonably achievable. COMPLICATIONS: None FINDINGS: LINES/ TUBES: None. LUNGS AND AIRWAYS: The central airways are patent. No focal consolidation. There is mild dependent interlobular septal thickening. No suspicious pulmonary nodules. PLEURA: No pleural effusion or pneumothorax. HEART AND MEDIASTINUM: The thyroid gland is normal. There are scattered proximally 1 cm prominent cervical (series 2 image 4) and upper mediastinal lymph nodes. An enlarged pretracheal node measures 1.9 x 1.6 cm (series 2 image 41). The main pulmonary artery is mildly enlarged. There are extensive atherosclerotic calcifications of the thoracic aorta and coronary arteries. There is multichamber cardiomegaly.. There is no pericardial effusion. UPPER ABDOMEN: Limited noncontrast enhanced images of the upper abdomen demonstrate no focal abnormality within the partially visualized liver, spleen, pancreas, or adrenal glands. There is a 3.3 cm left upper pole renal cyst. Trace perihepatic free fluid. BONES: Degenerative changes of the visualized spine. Old compression fracture at T12 status post vertebral augmentation. Median sternotomy wires in place. SOFT TISSUES: There is a small defect along the posteromedial left hemidiaphragm with herniation of fat. This corresponds with the rounded opacity seen on the chest radiograph of earlier the same day. IMPRESSION: 1. No focal consolidation. Cardiomegaly with minimal interstitial edema. 2. Enlarged pretracheal lymph node and scattered prominent nonenlarged cervical and upper mediastinal lymph nodes are nonspecific. 3. Small defect along the posterior medial left hemidiaphragm with herniation of fat. This corresponds with the rounded opacity seen on the chest radiograph of earlier the same day. Signed by: Kimmy Sams MD on 04/09/2019 5:30 PM
--- NOTE | 2019-04-09 17:43 | NUR ---
Received report from the ER. Patient is coming to room 206
--- NOTE | 2019-04-09 18:31 | NUR ---
Patient arrived to the floor from the ER. she is awake alert and oriented x3. Her daughter is present. Patient c/o weakness and says she has fallen at home recently. Patient was transferred from ER stretcher to bed. Patient has no complaints at this time. She was oriented to the room and educated not to get up without assistance, she verbalized understanding. Bed alarm is on, call light is in reach. Purewick is in place for urge incontinence.
[2019-04-09] MEDS ORDERED: ACETAMINOPHEN 325 MG TAB PO PRN (19:45)
[2019-04-09 20:00] VITALS: BP 169/70
[2019-04-09] MEDS: ACETAMINOPHEN 325 MG TAB PO PRN (20:58)
[2019-04-09 23:34] VITALS: BP 169/70
[2019-04-10] VITALS (9 sets, daily range): BP systolic 120–192; BP diastolic 49–70
[2019-04-10] MEDS: ACETAMINOPHEN 325 MG TAB PO PRN ×4 (02:42→21:54)
[2019-04-10 05:19] LABS: BASOPHILS % 0.4 % (0.0-1.0); EOSINOPHILS % 0.6 % (0.0-6.0); HEMATOCRIT 25.4 % (34.2-44.1); HEMOGLOBIN 8.1 g/dL (12.0-16.0); LYMPHOCYTES # (AUTO) 0.7 (1.0-3.2); LYMPHOCYTES % 14.1 % (18.0-39.1); MEAN CORPUSCULAR HEMOGLOBIN 33.8 pg (28-32); MEAN CORPUSCULAR HGB CONC 31.9 g/dL (31-35); MEAN CORPUSCULAR VOLUME 105.8 fL (81-99); MONOCYTES # (AUTO) 0.7 (0.2-0.8); MONOCYTES % 14.1 % (4.4-11.3); NEUTROPHILS # (AUTO) 3.5 (2.1-6.9); NEUTROPHILS % 70.2 % (38.7-80.0); PLATELET COUNT 137 x10e3/uL (140-360); RED CELL DISTRIBUTION WIDTH 13.8 % (11.7-14.4)
[2019-04-10 05:36] LABS: ANION GAP 12.4 mmol/L (8-16); CALCIUM 8.8 mg/dL (8.4-10.2); CREATININE, SERUM 1.51 mg/dL (0.57-1.11); POTASSIUM 3.4 mmol/L (3.5-5.1)
[2019-04-10 05:46] LABS: CREATINE KINASE MB 0.8 ng/mL (0-5.0)
[2019-04-10 06:05] LABS: CHOL/HDL RATIO 2.6 (3.0-3.6)
--- NOTE | 2019-04-10 07:00 | NUR ---
BEDSIDE SHIFT REPORT RECEIVED FROM THE SMALL APPLIANCE ASSEMBLY SUPERVISOR RN. PT DENIES NEEDS AT THIS TIME.
[2019-04-10] MEDS: INSULIN REGULAR, HUMAN 100 UNIT/1 ML 3ML VIAL SQ SCH ×4 (07:30→21:31)
[2019-04-10] MEDS ORDERED: FUROSEMIDE INJ 10 MG/ML 2 ML VIAL IV SCH ×2 (09:00→17:00)
--- NOTE | 2019-04-10 09:00 | NUR ---
PAGED DR ROMAN AND INFORMED PT BLOOD PRESSURE LEVEL. NO NEW ORDERS RECEIVED.
[2019-04-10] MEDS ORDERED: TRAMADOL HCL 50 MG TAB PO PRN (09:45)
--- NOTE | 2019-04-10 10:00 | NUR ---
PER THE PT, SHE IS ALLERGIC TO CODEINE, ASPIRIN AND MORPHINE. INFORMED THE SAME TO THE PHARMACY. TRAMADOL ORDER CANCELLED BY PHARMACY.
--- NOTE | 2019-04-10 11:00 | NUR ---
SCD'S ARE ON WITH THE PT.
[2019-04-10] MEDS ORDERED: FUROSEMIDE INJ 10 MG/ML 4 ML VIAL IV ONE (12:00)
[2019-04-10] MEDS: CARVEDILOL 12.5 MG TAB PO SCH ×2 (12:11→17:45)
[2019-04-10] MEDS: AMLODIPINE BESYLATE 5 MG TAB PO SCH (12:12)
[2019-04-10 14:14] LABS: CREATINE KINASE MB 1.4 ng/mL (0-5.0)
--- NOTE | 2019-04-10 16:00 | NUR ---
AMADOR TO ADMINISTER METOPROLOL ABOVE HEART RATE [address] SHARP.
--- NOTE | 2019-04-10 16:52 | NUR ---
CALLED PHARMACY AND CONFIRMED LASIX DOSAGE.
--- NOTE | 2019-04-10 17:00 | NUR ---
PT REFUSED BED ALARM.
[2019-04-10] MEDS: DICYCLOMINE HCL 20 MG TAB PO SCH (17:15)
--- NOTE | 2019-04-10 19:10 | NUR ---
BEDSIDE SHIFT REPORT GIVEN TO THE COVER MAKING MACHINE OPERATOR RN. PT DENIED FURTHER NEEDS.
[2019-04-10] MEDS: FUROSEMIDE INJ 10 MG/ML 2 ML VIAL IV SCH (21:28)
[2019-04-11 00:48] VITALS: BP 121/53
--- NOTE | 2019-04-11 01:41 | NUR ---
Patient noted ambulating down the carvalho w/ steady gait using walker, no issues or respiratory distress noted.
--- NOTE | 2019-04-11 02:21 | Consultation ---
DATE OF CONSULTATION: 04/10/2019 Cardiology Consultation. REQUESTING PHYSICIAN: Terrance Jean-Baptiste MD. REASON FOR CONSULTATION: Chest pain. HISTORY OF PRESENT ILLNESS: This is a 73-year-old woman with history of bioprosthetic aortic valve replacement in September 2016, carotid artery disease, status post left carotid endarterectomy, peripheral arterial disease status post bypass, diabetes mellitus, and hypertension who presented to the [facility] with complaints of chest pain and shortness of breath. The patient reports she has chronic shortness of breath with progressive edema over the last month. She reports orthopnea and PND that was worse beginning on Saturday. On Saturday night, she developed diffuse body aches followed by chest pain which she described as air in her chest. She subsequently presented to the ER for further evaluation. Of note, the patient was seen in the office on Saturday and prescribed Lasix and carvedilol which she indicates she has not picked up from the pharmacy. REVIEW OF SYSTEMS: Negative except as per HPI. PAST MEDICAL HISTORY: 1. Bioprosthetic aortic valve replacement in September of 2016. 2. Carotid artery disease, status post left carotid endarterectomy. 3. Peripheral arterial disease, status post bypass. 4. Diabetes mellitus. 5. Hypertension. 6. Chronic diastolic heart failure. PAST SURGICAL HISTORY: 1. Bioprosthetic aortic valve replacement. 2. Left carotid endarterectomy. 3. Tonsillectomy. 4. Hysterectomy. 5. Back surgery. ALLERGIES: PLEASE SEE EMR. MEDICATIONS: Please see medication list. SOCIAL HISTORY: Current smoker. No alcohol. FAMILY HISTORY: Noncontributory to current illness. PHYSICAL EXAMINATION: VITAL SIGNS: Temperature 97.7 degrees, pulse 65, respiratory rate 18, blood pressure 192/70, oxygen saturation 100% on room air. GENERAL: Well-developed, well-nourished elderly woman, in no acute distress. Awake and alert. HEENT: Normocephalic, atraumatic. Pupils equal. No sclerae icterus. NECK: Supple. No thyromegaly or cervical lymphadenopathy. No carotid bruits. LUNGS: Clear to auscultation bilaterally. No wheezes or crackles. CARDIOVASCULAR: Normal rate. Regular rhythm. Normal S1, S2, 1/6 systolic murmur. ABDOMEN: Soft, nontender. EXTREMITIES: 1+ pitting edema. LABS: BNP 1313. Sodium 137, potassium 3.4, chloride 104, CO2 is 24, BUN 25, creatinine 1.51. Troponin 0.028. WBC 5.04, hemoglobin 8.1, hematocrit 25.4, platelets 137. TELEMETRY: Normal sinus rhythm IMPRESSION: 1. Uevis-cj-ahczywo diastolic heart failure. 2. Chest pain. 3. Gram-negative hieu urinary tract infection. 4. Bioprosthetic aortic valve replacement in September 2016. 5. Carotid artery disease, status post left carotid endarterectomy and peripheral arterial disease status post bypass. 6. Diabetes mellitus. 7. Hypertension, poorly controlled. RECOMMENDATIONS: Metoprolol was discontinued and carvedilol was started. The patient was placed on IV diuretics. Given the patient's ulavj-fl-sdbjsoc diastolic heart failure, the importance of daily weights and sodium restriction as well as blood pressure control were discussed with the patient. The patient had recent bilateral extremity venous Doppler, which was negative for DVT. Arterial Doppler was recently performed at the office as well as she has no ulcers or gangrenous changes. No further evaluation is indicated at this time. The patient has ruled out for myocardial infarction. She may be discharged home from cardiac standpoint. Isela Oneill MD ABS/MODL /[id number]
[2019-04-11 05:57] VITALS: BP 113/45
[2019-04-11] MEDS ORDERED: LEVOTHYROXINE SODIUM 75 MCG TAB PO SCH (06:00)
--- NOTE | 2019-04-11 07:00 | NUR ---
RECEIVED BEDSIDE SHIFT REPORT FROM THE SHIPPING SUPPORT CLERK RN. PT REFUSED BED ALARM. PT DENIES NEEDS AT THIS TIME.
[2019-04-11] MEDS: INSULIN REGULAR, HUMAN 100 UNIT/1 ML 3ML VIAL SQ SCH ×2 (07:30→11:30)
[2019-04-11] MEDS: FUROSEMIDE INJ 10 MG/ML 2 ML VIAL IV SCH (08:02)
[2019-04-11] MEDS: DICYCLOMINE HCL 20 MG TAB PO SCH (08:02)
[2019-04-11] MEDS: AMLODIPINE BESYLATE 5 MG TAB PO SCH (08:02)
[2019-04-11] MEDS: CARVEDILOL 12.5 MG TAB PO SCH (08:15)
[2019-04-11 08:30] VITALS: BP 157/67
--- NOTE | 2019-04-11 08:57 | NUR ---
H&P cc: sob and muscle pain HPI: 73yoF, PCP , cardio , developed sob/diffuse muscle pain. PMH: DM, CVA, breast cancer s/p right mastectomy, anemia, former smoker, CHF, HLD, OA, AV ds s/p AVR PSHx: right mastectomy, AVR with porcine valve, left CEA, right leg bypass [place]; see emr Fh/SH; ; former smoker meds; see MAR ROS no f/c/s/N/V/D/BOSE/vision changes/dizziness/leg pain/cp. v/s; revd PE tired appearing anicteric ns1s2 mod bs soft nt nd no e/t a&ox3; syed skin dry n. affect labs/meds revd A/P: 73yoF AECHF PUlmonary edema DM Malaise/fatigue Hx CVA OA [place] Obesity BMI 37.7 Hypothyroidism HTN FANY UTI PLAN restart home meds cardio eval f/u urine cx diurese d/c planning; Terrance Jean-Baptiste MD, PhD.
--- NOTE | 2019-04-11 08:58 | NUR ---
H&P Please note DOS for H&P was 04/10/19 at 9am.
[2019-04-11 09:00] VITALS: BP 157/67
[2019-04-11] MEDS ORDERED: AMLODIPINE BESYLATE 5 MG TAB PO SCH (09:00)
[2019-04-11] MEDS ORDERED: HYDROXYCHLOROQUINE SULFATE 200 MG TAB PO SCH (09:00)
[2019-04-11] MEDS ORDERED: METOPROLOL SUCCINATE 25 MG TAB XL PO SCH (09:00)
[2019-04-11] MEDS ORDERED: CLOPIDOGREL BISULFATE 75 MG TAB PO SCH (09:00)
[2019-04-11 09:53] LABS: ANION GAP 14.6 mmol/L (8-16); CALCIUM 8.8 mg/dL (8.4-10.2); CREATININE, SERUM 1.76 mg/dL (0.57-1.11); POTASSIUM 3.6 mmol/L (3.5-5.1)
[2019-04-11] MEDS ORDERED: FUROSEMIDE40 MG PO (10:39)
[2019-04-11] MEDS ORDERED: COREG12.5 MG PO (10:39)
[2019-04-11] MEDS ORDERED: KEFLEX500 MG PO (10:39)
--- NOTE | 2019-04-11 11:00 | NUR ---
WALKING ROUNDS MADE. PT IS WAITING FOR THE DAUGHTER TO COME TO PICK HER UP.
--- NOTE | 2019-04-11 11:00 | NUR ---
OKAY TO DISCHARGE PT PER DR. ROMAN.
--- NOTE | 2019-04-11 12:15 | NUR ---
PT DISCHARGED HOME SAFELY WITH FAMILY VIA PRIVATE AUTO. PT IS AAOX 4. RESPIRATION EVEN AND UNLABORED. NO DISTRESS NOTED. DISCHARGE INSTRUCTIONS GIVEN AND REVIEWED, PT VERBALIZED UNDERSTANDING. LEFT WRIST 20 G IV REMOVED. TIP INTACT. NO BLEEDING NOTED. PRESSURE GAUZE PLACED AND SECURED WITH TAPE.TELE # 9 REMOVED. PT ESCORTED VIA WHEEL CHAIR TO THE FRONT ENTRANCE. PT DENIED FURTHER NEEDS.
[2019-04-11 12:20] VITALS: BP 153/59
--- NOTE | 2019-04-11 17:29 | Progress Note ---
DATE: 04/11/2019 Cardiology Progress Note SUBJECTIVE: The patient denies chest pain. She continues to have shortness of breath. OBJECTIVE: VITAL SIGNS: Temperature 97.7 degrees, pulse 88, respiratory rate 28, blood pressure 157/67, and oxygen saturation 95% on room air. GENERAL: Awake, alert, in no acute distress. LUNGS: Clear to auscultation bilaterally. No wheezes or crackles. CARDIOVASCULAR: Normal rate. Regular rhythm, 1/6 systolic murmur. Normal S1, S2. ABDOMEN: Soft, nontender. EXTREMITIES: 1+ pitting edema. CARDIAC MEDICATIONS: 1. Carvedilol 12.5 mg p.o. b.i.d. 2. Plavix 25 mg p.o. daily. 3. Furosemide 40 mg IV b.i.d. 4. Amlodipine 5 mg p.o. daily. 5. Levothyroxine 75 mcg p.o. daily. LABORATORY DATA: Sodium 139, potassium 3.6, chloride 103, CO2 of 25, BUN 35, and creatinine 1.76. TELEMETRY: Sinus bradycardia. IMPRESSION: 1. Cflqa-hd-mfnrvfj diastolic heart failure. 2. Chest pain. 3. Gram-negative hieu urinary tract infection. 4. Bioprosthetic aortic valve replacement in September 2016. 5. Carotid artery disease, status post left carotid endarterectomy. 6. Peripheral arterial disease, status post bypass. 7. Diabetes mellitus. 8. Hypertension, poorly controlled. RECOMMENDATIONS: The patient's blood pressure remains elevated. Continue carvedilol, titrate further as outpatient. She was advised to have p.o. Lasix on discharge. She was instructed to follow up in the office this week for labs. Continue current cardiac medications, otherwise. No further cardiac evaluation is indicated at this time. Thank you for this consult. We will continue to follow. Isela Oneill MD ABS/MODL /[id number]
== END 2019-04-11 12:40 | disposition home or self-care (01) ==
LOC: ER 12:29 → INTOOBSV 16:05 → ERHOLD 16:05 → MED/SURG2 18:30
PROVIDERS: ADMIT Internal Medicine; ATTEND Internal Medicine
DX: I11.0 Hypertensive heart disease with heart failure (principal); I50.33 Acute on chronic diastolic (congestive) heart failure; E11.9 Type 2 diabetes mellitus without complications; D64.9 Anemia, unspecified; E78.5 Hyperlipidemia, unspecified; M19.90 Unspecified osteoarthritis, unspecified site; Z90.11 Acquired absence of right breast and nipple; Z83.3 Family history of diabetes mellitus; Z82.49 Family history of ischemic heart disease and other diseases of the circulatory system; Z86.73 Personal history of transient ischemic attack (TIA), and cerebral infarction without residual deficits; Z85.3 Personal history of malignant neoplasm of breast; Z95.2 Presence of prosthetic heart valve; I73.9 Peripheral vascular disease, unspecified; Z88.5 Allergy status to narcotic agent; Z88.8 Allergy status to other drugs, medicaments and biological substances; Z95.820 Peripheral vascular angioplasty status with implants and grafts; N39.0 Urinary tract infection, site not specified; B96.89 Other specified bacterial agents as the cause of diseases classified elsewhere; I65.29 Occlusion and stenosis of unspecified carotid artery; Z87.891 Personal history of nicotine dependence; E66.9 Obesity, unspecified; Z68.37 Body mass index [BMI] 37.0-37.9, adult; E03.9 Hypothyroidism, unspecified; N17.9 Acute kidney failure, unspecified; Z79.84 Long term (current) use of oral hypoglycemic drugs
CPT/HCPCS: 36415 ×3; 71045; 71250; 80048 ×2; 80053; 80061; 81001; 82550 ×2; 82553 ×2; 82948 ×3; 83036; 83735; 83880 ×2; 84484 ×2; 85025 ×2; 85610; 85730; 87086; 87186; 93005; 93306; 96372; 99284; G0378 ×3; J1817; J1940 ×3; J3010

== ENCOUNTER → 2021-03-22 | Outpatient (CLI) | payer MEDICARE ==
[~2021-03-22] MED LIST changes: +ATORVASTATIN CA20 MG PO; +COREG12.5 MG PO; +FOLIC ACID0.4 MG PO; +FUROSEMIDE40 MG PO; +GLIMEPIRIDE2 MG PO; +ISONIAZID300 MG PO; +KEFLEX500 MG PO; +PANTOPRAZOLE SO40 MG PO; +ULTRAM 50MG50 MG PO; +VITAMIN B-650 MG PO
== END ==
LOC: CARD 08:28
PROVIDERS: ATTEND Internal Medicine
DX: I73.9 Peripheral vascular disease, unspecified (principal)
CPT/HCPCS: 93925